=== PATIENT | male | born 1960 | race Caucasian/White ===

== ENCOUNTER 2021-01-29 15:58 | Inpatient (IN) ==
[2021-01-29] MEDS ORDERED: SODIUM CHLORIDE 0.9% 1000ML 1,000 ML IV ONE (16:37)
[2021-01-29] MEDS ORDERED: MoRPHine SULFATE 4 MG/ML 1 ML CARP\\VIAL IV STA (16:44)
--- NOTE | 2021-01-29 16:53 | Emergency Department Note ---
Impression & Plan Cellulitis and abscess of left lower extremity, Acute osteomyelitis of left ankle or foot ED Provider Note CHIEF COMPLAINT: Left ankle pain and swelling HISTORY OF PRESENTING ILLNESS: This is a 60-year-old male who presents to the emergency department by private vehicle with complaint of pain and swelling in the left ankle. The patient states that he believes he sprained the ankle about 2 months ago, he has been trying to manage the sprain since the injury with Andrez wraps and a walking boot, but he feels the pain and swelling continue to get worse. Over the past few days he has noticed increased redness and swelling around the whole foot and ankle. He notes that he is a diabetic and has some neuropathy in the foot, so he is not always certain of how bad the ankle is looking, but today when he looked at it he was very concerned. He has not had any fevers or chills. He denies any nausea, vomiting, or loss of appetite. He denies any chest pain, chest tightness, shortness of breath, palpitations, dizziness or syncope. He denies any pain in the knee or hip. He does note a history of a diabetic ulcer to this foot and notes that he had surgery several years ago to help fix this and also notes that he got an infection in the tendon. He does not remember much about the details, but notes that he was treated by the [facility]. He does not take insulin for his diabetes. REVIEW OF SYSTEMS: A complete 10 point review of systems was reviewed with the patient with pertinent positives and negatives as per history of present illness. All else were negative. PAST MEDICAL HISTORY: Hypertension, hyperlipidemia, type 2 diabetes, GERD SOCIAL HISTORY: Lives at home, he denies tobacco use ALLERGIES: No known allergies PHYSICAL EXAM: CONSTITUTIONAL: Pleasant and cooperative. Nontoxic-appearing and in no acute distress. Mildly dehydrated, but otherwise well appearing and well nourished. HEENT: Normocephalic, atraumatic. Pharynx normal. Tacky mucous membranes. NECK: Supple, full active range of motion without discomfort. RESPIRATORY: Clear to auscultation bilaterally with no wheezing, crackles, rhonchi or stridor. Equal expansion bilaterally. CARDIOVASCULAR: Regular rate and rhythm with no murmurs, rubs or gallops. Normal peripheral perfusion. No edema. GASTROINTESTINAL: Soft, nontender, nondistended. No palpable masses or HSM. Bowel sounds present in all quadrants. MUSCULOSKELETAL: The left foot and ankle are diffusely edematous, erythematous, and hot to the touch. Patient is very tender to palpation, especially along the medial aspect of the ankle and extending up the calf. There is a large area of fluctuance concerning for abscess. There is a small pressure ulcer noted on the ball of the foot, this does not appear to be actively infected or significantly open. 2+ DP and PT pulses, capillary refill. Sensation intact to light touch. There is pain with range of motion of the left ankle joint. No pain or swelling noted within the knee. INTEGUMENTARY: No other rash or other significant dermatologic conditions noted. NEUROLOGIC: Alert and oriented X 4 with normal affect. Normal strength and sensation in all 4 extremities. Normal speech. Normal gait observed. ED COURSE AND MEDICAL DECISION MAKING: CC: Patient presenting with complaint of left ankle pain and swelling DIFFERENTIAL DIAGNOSIS: Includes, but not limited to cellulitis, abscess, osteomyelitis, septic joint, diabetic wound, fracture, sprain/strain, among others. INTERPRETATION OF LABS: Leukocytosis, mild anemia, normal platelets, mild hyponatremia and hypokalemia, hyperglycemia, no other significant electrolyte abnormalities, BUN is slightly elevated with a normal creatinine, normal liver enzymes. ESR and CRP are significantly elevated. Coagulation factors within normal limits. Lactate within normal limits. Blood cultures pending. MEDICATION RECONCILIATION: I attest that I have personally reviewed the patient's current medication list. INITIAL VITAL SIGNS REVIEW: I reviewed the patient's initial vital signs and interpret them as follows: T: Afebrile; BP: Hypertensive; HR: Mildly tachycardic; RR: Within normal limits; Pulse Ox: Within normal limits on room air. MDM SUMMARY: Patient was evaluated at bedside, history and physical exam performed. Patient is alert and oriented, no acute distress, resting calmly in stretcher. Afebrile and nontoxic-appearing. He does appear to be mildly dehydrated clinically. The left foot and ankle are significantly swollen, erythematous and warm to the touch, concerning for infection. There is a significant area of fluctuance on the medial/posterior aspect of the ankle concerning for abscess. He is neurovascularly intact and there are no significant open wounds. There is a small area of pressure ulcer on the ball of the foot. Cardiac monitoring: An order was placed for continuous cardiac monitoring. The monitor shows a rate of 102 bpm with sinus tachycardia rhythm. Orders were placed for labs including inflammatory markers, lactic acid, and blood cultures x2, IV fluid bolus for hydration, IV Toradol for pain, CT imaging of the tib-fib, ankle, and foot to evaluate for infection. Patient discussed with Dr. James, who agrees with my assessment, plan, and disposition. Labs and imaging reviewed, labs notable for leukocytosis and elevated inflammatory markers. Mild hyponatremia is most likely secondary to hyperglycemia. Lactate was within normal limits. Blood cultures are pending. CT imaging is concerning for a very large multiloculated area along the medial posterior ankle concerning for an abscess as well as 2 areas that are concerning for osteomyelitis. I spoke on the phone with Dr. Pitts, orthopedic surgery, who recommended starting the patient on IV antibiotics and admitting the patient to the hospitalist team. He will evaluate the patient during his admission to deter mine any surgical needs. Orders were placed for 2 g IV cefepime and 2500 mg IV vancomycin for broad coverage of the patient's osteomyelitis and cellulitis. I spoke with Dr. Chapman, [facility], who agrees to evaluate the patient for the admission. Covid testing was ordered. Patient reassessed multiple times throughout ED stay, he has remained hemodynamically stable and afebrile, he reports that his pain has been adequately controlled with the Toradol. He remains neurovascularly intact. The patient was updated on all results and plan for admission, he was agreeable to this plan. The patient was stable at the time of admission. The chart was completed utilizing [employer] Speech voice recognition software. Grammatical errors, random word insertions, pronoun errors, and incomplete sentences are an occasional consequence of this system due to software limitations, ambient noise, and hardware issues. Any formal questions or concerns about the content, text, or information contained within the body of this dictation should be directly addressed to the nurse practitioner for clarification. Past Med/Surg History Social History Smoking Status: Never smoker Preferred Language: Serbian Feels Safe at Home: Yes Allergies Allergies Allergy/AdvReac Type Severity Reaction Status Date / Time [id number] Allergy Unknown Uncoded 09/26/02 14:35 N Allergy Unknown Uncoded 09/26/02 14:35 NONE Allergy Unknown Uncoded 09/26/02 14:35 Home Meds Home Medications Medication Instructions Recorded Confirmed alogliptin 25 mg PO DAILY 01/29/21 01/29/21 aspirin [Aspir-Low] 81 mg PO DAILY 01/29/21 01/29/21 atorvastatin 20 mg PO DAILY 01/29/21 01/29/21 cephalexin 500 mg PO QID 01/29/21 01/29/21 empagliflozin [Jardiance] 12.5 mg PO DAILY 01/29/21 01/29/21 famotidine [Pepcid] 20 mg PO BID 01/29/21 01/29/21 hydrochlorothiazide 25 mg PO DAILY 01/29/21 01/29/21 lisinopril 20 mg PO DAILY 01/29/21 01/29/21 loratadine 10 mg PO DAILY PRN 01/29/21 01/29/21 metformin 1,000 mg PO BID 01/29/21 01/29/21 metoprolol tartrate 50 mg PO BID 01/29/21 01/29/21 multivitamin 1 tab PO DAILY 01/29/21 01/29/21 Results & Data (ED) Vital Signs Vital Signs - 24 hr 01/29/21 16:00 01/29/21 17:29 Temperature 36.7 C Temperature Source Temporal Artery Scan Pulse Rate 109 H Pulse Rate [Finger] 92 H Pulse Rhythm [Finger] Regular Respiratory Rate 18 18 Respiratory Effort / Characteristics Non-Labored Spontaneous Respiratory Depth Normal Respiratory Pattern Regular Blood Pressure 165/82 H Blood Pressure [Right Arm] 167/95 H Blood Pressure Mean 109 Blood Pressure Mean [Right Arm] 119 Blood Pressure Position [Right Arm] Lying Pulse Oximetry 96 99 Oxygen Delivery Method Room Air Room Air Sepsis Recent Fever Within 48 Hours No Sepsis New/Unexplained Change in Mental Status No Sepsis Action Taken by Nursing No Action Required Laboratory Data Result diagrams: 01/29/21 16:55 01/29/21 16:55 Lab Results 01/29/21 01/29/21 01/29/21 Range/Units 16:55 16:55 16:55 WBC 11.12 H (4.8-10.8) K/uL RBC 4.05 L (4.7-6.1) M/uL Hgb 11.6 L (14.0-18.0) g/dL Hct 34.0 L (42-52) % MCV 84.0 (80-100) fL MCH 28.6 (25-34) pg MCHC 34.1 (32-36) g/dL RDW Std Deviation 39.2 (36.4-46.3) fL RDW Coeff of Kevin 12.8 (11.5-14.5) % Plt Count 242 (130-400) K/uL MPV 8.4 (7.4-10.4) fL Immature Gran % (Auto) 0.2 % Neut % (Auto) 67.8 % Lymph % (Auto) 15.5 % [place] % (Auto) 15.8 % Eos % (Auto) 0.6 % Baso % (Auto) 0.1 % Neut # (Auto) 7.54 H (1.4-6.5) K/uL Lymph # (Auto) 1.72 (1.2-3.4) K/uL [place] # (Auto) 1.76 H (0.11-0.59) K/uL Eos # (Auto) 0.07 (0-0.5) K/uL Baso # (Auto) 0.01 (0-0.2) K/uL Immature Gran # (Auto) 0.02 (0.00-0.02) K/uL ESR 61 H (0-20) mm/hr PT (9.0-12.0) Seconds INR (0.9-1.1) APTT (21.0-31.0) Seconds PTT Ratio Sodium 131 L (136-145) mmol/L Potassium 3.4 L (3.5-5.1) mmol/L Chloride 98 (98-107) mmol/L Carbon Dioxide 25 (21-32) mmol/L Anion Gap 7.0 (3-11) BUN 22 H (7-18) mg/dl Creatinine 1.04 (0.6-1.4) mg/dl Est Cr Clr Drug Dosing Not Reportable Est GFR ( Amer) 90.0 ml/min Est GFR (Non-Af Amer) 77.7 ml/min BUN/Creatinine Ratio 21.3 H (10-20) Glucose 208 H (70-99) mg/dl Lactate (0.4-2.0) mmol/L Calcium 8.8 (8.5-10.1) mg/dl Total Bilirubin 0.3 (0.2-1) mg/dl AST 12 L (15-37) U/L ALT 24 (12-78) U/L Alkaline Phosphatase 74 (45-117) U/L C-Reactive Protein 18.50 H (0-0.29) mg/dl Total Protein 7.0 (6.4-8.2) gm/dl Albumin 2.8 L (3.4-5.0) gm/dl Globulin 4.2 H (2.5-4.0) gm/dl Albumin/Globulin Ratio 0.7 L (0.9-2) COVID-19 Eval Order SARS-CoV-2 (PCR) (Negative) 01/29/21 01/29/21 01/29/21 Range/Units 16:55 16:55 19:45 WBC (4.8-10.8) K/uL RBC (4.7-6.1) M/uL Hgb (14.0-18.0) g/dL Hct (42-52) % MCV (80-100) fL MCH (25-34) pg MCHC (32-36) g/dL RDW Std Deviation (36.4-46.3) fL RDW Coeff of Kevin (11.5-14.5) % Plt Count (130-400) K/uL MPV (7.4-10.4) fL Immature Gran % (Auto) % Neut % (Auto) % Lymph % (Auto) % [place] % (Auto) % Eos % (Auto) % Baso % (Auto) % Neut # (Auto) (1.4-6.5) K/uL Lymph # (Auto) (1.2-3.4) K/uL [place] # (Auto) (0.11-0.59) K/uL Eos # (Auto) (0-0.5) K/uL Baso # (Auto) (0-0.2) K/uL Immature Gran # (Auto) (0.00-0.02) K/uL ESR (0-20) mm/hr PT 11.0 (9.0-12.0) Seconds INR 1.1 (0.9-1.1) APTT 26.5 (21.0-31.0) Seconds PTT Ratio 1.0 Sodium (136-145) mmol/L Potassium (3.5-5.1) mmol/L Chloride (98-107) mmol/L Carbon Dioxide (21-32) mmol/L Anion Gap (3-11) BUN (7-18) mg/dl Creatinine (0.6-1.4) mg/dl Est Cr Clr Drug Dosing Est GFR ( Amer) ml/min Est GFR (Non-Af Amer) ml/min BUN/Creatinine Ratio (10-20) Glucose (70-99) mg/dl Lactate 1.1 (0.4-2.0) mmol/L Calcium (8.5-10.1) mg/dl Total Bilirubin (0.2-1) mg/dl AST (15-37) U/L ALT (12-78) U/L Alkaline Phosphatase (45-117) U/L C-Reactive Protein (0-0.29) mg/dl Total Protein (6.4-8.2) gm/dl Albumin (3.4-5.0) gm/dl Globulin (2.5-4.0) gm/dl Albumin/Globulin Ratio (0.9-2) COVID-19 Eval Order Covid19 at [facility] SARS-CoV-2 (PCR) (Negative) 01/29/21 Range/Units 19:45 WBC (4.8-10.8) K/uL RBC (4.7-6.1) M/uL Hgb (14.0-18.0) g/dL Hct (42-52) % MCV (80-100) fL MCH (25-34) pg MCHC (32-36) g/dL RDW Std Deviation (36.4-46.3) fL RDW Coeff of Kevin (11.5-14.5) % Plt Count (130-400) K/uL MPV (7.4-10.4) fL Immature Gran % (Auto) % Neut % (Auto) % Lymph % (Auto) % [place] % (Auto) % Eos % (Auto) % Baso % (Auto) % Neut # (Auto) (1.4-6.5) K/uL Lymph # (Auto) (1.2-3.4) K/uL [place] # (Auto) (0.11-0.59) K/uL Eos # (Auto) (0-0.5) K/uL Baso # (Auto) (0-0.2) K/uL Immature Gran # (Auto) (0.00-0.02) K/uL ESR (0-20) mm/hr PT (9.0-12.0) Seconds INR (0.9-1.1) APTT (21.0-31.0) Seconds PTT Ratio Sodium (136-145) mmol/L Potassium (3.5-5.1) mmol/L Chloride (98-107) mmol/L Carbon Dioxide (21-32) mmol/L Anion Gap (3-11) BUN (7-18) mg/dl Creatinine (0.6-1.4) mg/dl Est Cr Clr Drug Dosing Est GFR ( Amer) ml/min Est GFR (Non-Af Amer) ml/min BUN/Creatinine Ratio (10-20) Glucose (70-99) mg/dl Lactate (0.4-2.0) mmol/L Calcium (8.5-10.1) mg/dl Total Bilirubin (0.2-1) mg/dl AST (15-37) U/L ALT (12-78) U/L Alkaline Phosphatase (45-117) U/L C-Reactive Protein (0-0.29) mg/dl Total Protein (6.4-8.2) gm/dl Albumin (3.4-5.0) gm/dl Globulin (2.5-4.0) gm/dl Albumin/Globulin Ratio (0.9-2) COVID-19 Eval Order SARS-CoV-2 (PCR) NEGATIVE (Negative) Administered Medications Vancomycin HCl 2,500 mg/ (Sodium Chloride) 550 mls @ 200 mls/hr IV NOW ONE Stop: 01/29/21 21:38 Last Admin: 01/29/21 19:27 Dose: 200 mls/hr Documented by: [id number] Miscellaneous Information (Vancomycin Consult Active) 1 ea N/A UD PRN PRN Reason: Consult Stop: 02/28/21 18:53 Last Admin: 01/29/21 19:28 Dose: 1 ea Documented by: [id number] Discontinued Medications Sodium Chloride (Nss 1000ml) 1,000 mls @ 999 mls/hr IV .Q1H1M ONE Stop: 01/29/21 17:37 Last Infusion: 01/29/21 18:01 Dose: 0 mls/hr Documented by: [id number] Admin: 01/29/21 16:55 Dose: 999 mls/hr Documented by: [id number] Cefepime HCl (Maxipime) 2,000 mg in 20 mls @ 5 mls/min IV NOW STA; Protocol Stop: 01/29/21 18:57 Last Admin: 01/29/21 19:26 Dose: 5 mls/min Documented by: [id number] Ioversol (Optiray 320 100ml) 94 ml IV ONCE ONE Stop: 01/29/21 17:50 Last Admin: 01/29/21 17:49 Dose: 94 ml Documented by: [id number] Ketorolac Tromethamine (Ketorolac Tromethamine 15 Mg/Ml Vial) 10 mg IV NOW ONE Stop: 01/29/21 17:10 Last Admin: 01/29/21 17:21 Dose: 10 mg Documented by: [id number] Morphine Sulfate (Morphine Sulfate 4 Mg/Ml 1 Ml Carp\Vial) 4 mg IV NOW STA Stop: 01/29/21 16:45 Last Admin: 01/29/21 17:19 Dose: Not Given Documented by: [id number] Imaging Data Radiologist's Impression: Ankle CT 01/29/21 16:37 CT tib/fib LT w con, CT foot LT w con, CT ankle LT w con HISTORY: Left lower extremity cellulitis TECHNIQUE: Multiaxial CT images of the left tibia/fibula, left ankle, left foot were performed following the intravenous administration of 94 cc of Optiray 320. COMPARISON STUDY: None. FINDINGS: There is diffuse skin thickening, subcutaneous edema, and enhancing subcutaneous fat stranding within the mid to distal left lower leg, left ankle, and majority of the left foot consistent with a cellulitis. There is a 3 mm focal skin ulceration at the plantar surface of the first MTP joint. Deep to the skin ulceration there is focal cortical destruction involving greater than 50% of the lateral sesamoid bone at the head of the first metatarsal. Therefore, this is consistent with an osteomyelitis. Subcutaneous infiltration within the sinus tarsi with possible small erosion at the anterior process of the calcaneus best seen on sagittal image 44. There are small plantar and posterior calcaneal spurs. No fractures identified within the right lower leg, right ankle, or right foot. There is a 1.2 cm osteochondral defect at the medial talar dome with a few small unstable bony fragments. There is a multiloculated peripheral enhancing low density abnormality primarily located within the pre-Achilles fat pad which involves the distal aspect of the soleus muscles. This abuts the distal shaft of the fibula. However, no cortical destruction. This measures approximately 16.2 x 6.7 x 3.5 cm and is consistent with a soft tissue abscess. This extends from the mid right lower leg to the level of the posterior talus. IMPRESSION: 1. A large multiloculated peripheral enhancing low density abnormality within the mid to distal lower leg posterior compartment which extends to the posterior ankle. This is primarily located within the pre-Achilles fat pad. This measures 16.2 x 6.7 x 3.5 cm is consistent with an abscess. This appears to also involv e/invade into the distal aspect of the soleus muscles. 2. A 3 mm skin ulceration at the plantar surface of the first MTP joint with underlying bony destruction of the lateral sesamoid bone. This consistent with an osteomyelitis. 3. Diffuse cellulitis. 4. Mild infiltration within the sinus tarsi with possible small erosion at the anterior calcaneus. This small erosion is age indeterminate but could represent an additional site of osteoarthritis. ACT 112: Negative or not required by law. Electronically signed by: Cezar Bone M.D. 01/29/2021 6:[address] 01/29/21 16:43 CT tib/fib LT w con, CT foot LT w con, CT ankle LT w con HISTORY: Left lower extremity cellulitis TECHNIQUE: Multiaxial CT images of the left tibia/fibula, left ankle, left foot were performed following the intravenous administration of 94 cc of Optiray 320. COMPARISON STUDY: None. FINDINGS: There is diffuse skin thickening, subcutaneous edema, and enhancing subcutaneous fat stranding within the mid to distal left lower leg, left ankle, and majority of the left foot consistent with a cellulitis. There is a 3 mm focal skin ulceration at the plantar surface of the first MTP joint. Deep to the skin ulceration there is focal cortical destruction involving greater than 50% of the lateral sesamoid bone at the head of the first metatarsal. Therefore, this is consistent with an osteomyelitis. Subcutaneous infiltration within the sinus tarsi with possible small erosion at the anterior process of the calcaneus best seen on sagittal image 44. There are small plantar and posterior calcaneal spurs. No fractures identified within the right lower leg, right ankle, or right foot. There is a 1.2 cm osteochondral defect at the medial talar dome with a few small unstable bony fragments. There is a multiloculated peripheral enhancing low density abnormality primarily located within the pre-Achilles fat pad which involves the distal aspect of the soleus muscles. This abuts the distal shaft of the fibula. However, no cortical destruction. This measures approximately 16.2 x 6.7 x 3.5 cm and is consistent with a soft tissue abscess. This extends from the mid right lower leg to the level of the posterior talus. IMPRESSION: 1. A large multiloculated peripheral enhancing low density abnormality within the mid to distal lower leg posterior compartment which extends to the posterior ankle. This is primarily located within the pre-Achilles fat pad. This measures 16.2 x 6.7 x 3.5 cm is consistent with an abscess. This appears to also involve/invade into the distal aspect of the soleus muscles. 2. A 3 mm skin ulceration at the plantar surface of the first MTP joint with underlying bony destruction of the lateral sesamoid bone. This consistent with an osteomyelitis. 3. Diffuse cellulitis. 4. Mild infiltration within the sinus tarsi with possible small erosion at the anterior calcaneus. This small erosion is age indeterminate but could represent an additional site of osteoarthritis. ACT 112: Negative or not required by law. Electronically signed by: Cezar Bone M.D. 01/29/2021 6:[address] 01/29/21 17:45 CT tib/fib LT w con, CT foot LT w con, CT ankle LT w con HISTORY: Left lower extremity cellulitis TECHNIQUE: Multiaxial CT images of the left tibia/fibula, left ankle, left foot were performed following the intravenous administration of 94 cc of Optiray 320. COMPARISON STUDY: None. FINDINGS: There is diffuse skin thickening, subcutaneous edema, and enhancing subcutaneous fat stranding within the mid to distal left lower leg, left ankle, and majority of the left foot consistent with a cellulitis. There is a 3 mm focal skin ulceration at the plantar surface of the first MTP joint. Deep to the skin ulceration there is focal cortical destruction involving greater than 50% of the lateral sesamoid bone at the head of the first metatarsal. Therefore, this is consistent with an osteomyelitis. Subcutaneous infiltration within the sinus tarsi with possible small erosion at the anterior process of the calcaneus best seen on sagittal image 44. There are small plantar and posterior calcaneal spurs. No fractures identified within the right lower leg, right ankle, or right foot. There is a 1.2 cm osteochondral defect at the medial talar dome with a few small unstable bony fragments. There is a multiloculated peripheral enhancing low density abnormality primarily located within the pre-Achilles fat pad which involves the distal aspect of the soleus muscles. This abuts the distal shaft of the fibula. However, no cortical destruction. This measures approximately 16.2 x 6.7 x 3.5 cm and is consistent with a soft tissue abscess. This extends from the mid right lower leg to the level of the posterior talus. IMPRESSION: 1. A large multiloculated peripheral enhancing low density abnormality within the mid to distal lower leg posterior compartment which extends to the posterior ankle. This is primarily located within the pre-Achilles fat pad. This measures 16.2 x 6.7 x 3.5 cm is consistent with an abscess. This appears to also involve/invade into the distal aspect of the soleus muscles. 2. A 3 mm skin ulceration at the plantar surface of the first MTP joint with underlying bony destruction of the lateral sesamoid bone. This consistent with an osteomyelitis. 3. Diffuse cellulitis. 4. Mild infiltration within the sinus tarsi with possible small erosion at the anterior calcaneus. This small erosion is age indeterminate but could represent an additional site of osteoarthritis. ACT 112: Negative or not required by law. Electronically signed by: Cezar Bone M.D. 01/29/2021 6:17 PM Discharge Plan Visit Data Chief Complaint: Ankle Pain Stated Complaint: LEFT ANKLE SWOLLEN, LEG PAIN ED Provider: Lilian James ED Midlevel Provider: Odessa Maradiaga Discharge Problem: Cellulitis and abscess of left lower extremity, Acute osteomyelitis of left ankle or foot Patient Disposition: Admitted As Inpatient Condition: Good Forms Stand Alone Forms: [facility], Virtual Emergency Department, Important Visit Information Prescriptions Prescriptions: No Action multivitamin Tablet 1 tab PO DAILY RF: 0 atorvastatin 40 mg Tablet 20 mg PO DAILY RF: 0 lisinopril 20 mg Tablet 20 mg PO DAILY RF: 0 aspirin [Aspir-Low] 81 mg Tablet,Delayed Release (Dr/Ec) 81 mg PO DAILY RF: 0 famotidine [Pepcid] 20 mg Tablet 20 mg PO BID RF: 0 cephalexin 500 mg capsule 500 mg PO QID RF: 0 metformin 1,000 mg Tablet 1,000 mg PO BID RF: 0 metoprolol tartrate 50 mg Tablet 50 mg PO BID RF: 0 hydrochlorothiazide 25 mg Tablet 25 mg PO DAILY RF: 0 loratadine 10 mg Tablet 10 mg PO DAILY PRN (Reason: ALLERGIES) RF: 0 alogliptin 25 mg Tablet 25 mg PO DAILY RF: 0 Jardiance 25 mg Tablet 12.5 mg PO DAILY RF: 0 Referrals Referrals: Westley Bardales MD [Primary Care Provider] -
[2021-01-29 17:05] LABS: Basophils # (auto) 0.01 K/uL (0-0.2); Basophils % (auto) 0.1 %; Eosinophils # (auto) 0.07 K/uL (0-0.5); Eosinophils % (auto) 0.6 %; Hemoglobin 11.6 g/dL (14.0-18.0); Immature Granulocytes # (auto) 0.02 K/uL (0.00-0.02); Immature Granulocytes % (auto) 0.2 %; Lymphocytes # (auto) 1.72 K/uL (1.2-3.4); Lymphocytes % (auto) 15.5 %; Mean Corpuscular Hemoglobin 28.6 pg (25-34); Mean Corpuscular Hgb Conc 34.1 g/dL (32-36); Mean Platelet Volume 8.4 fL (7.4-10.4); Monocytes # (auto) 1.76 K/uL (0.11-0.59); Monocytes % (auto) 15.8 %; Neutrophils # (auto) 7.54 K/uL (1.4-6.5); Neutrophils % (auto) 67.8 %; Platelet Count 242 K/uL (130-400); RDW Coefficient of Variation 12.8 % (11.5-14.5); RDW Standard Deviation 39.2 fL (36.4-46.3); Red Blood Count 4.05 M/uL (4.7-6.1); White Blood Count 11.12 K/uL (4.8-10.8)
[2021-01-29] MEDS ORDERED: KETOROLAC TROMETHAMINE 15 MG/ML VIAL IV ONE (17:09)
[2021-01-29 17:16] LABS: INR 1.1 (0.9-1.1); Partial Thromboplastin Time 26.5 Seconds (21.0-31.0)
[2021-01-29 17:24] LABS: Alanine Aminotransferase 24 U/L (12-78); Albumin Level 2.8 gm/dl (3.4-5.0); Aspartate Aminotransferase 12 U/L (15-37); BUN Creatinine Ratio 21.3 (10-20); Blood Urea Nitrogen 22 mg/dl (7-18); Calcium 8.8 mg/dl (8.5-10.1); Carbon Dioxide 25 mmol/L (21-32); Chloride 98 mmol/L (98-107); Est GFR (Non-African American) 77.7 ml/min; Glucose 208 mg/dl (70-99); Potassium 3.4 mmol/L (3.5-5.1); Sodium 131 mmol/L (136-145)
[2021-01-29 17:27] LABS: Albumin Globulin Ratio 0.7 (0.9-2); Alkaline Phosphatase 74 U/L (45-117); Bilirubin,Total 0.3 mg/dl (0.2-1); Globulin 4.2 gm/dl (2.5-4.0)
[2021-01-29] MEDS ORDERED: OPTIRAY 320 100ml IV ONE (17:49)
--- NOTE | 2021-01-29 18:19 | CT Scan Report ---
CT tib/fib LT w con, CT foot LT w con, CT ankle LT w con HISTORY: Left lower extremity cellulitis TECHNIQUE: Multiaxial CT images of the left tibia/fibula, left ankle, left foot were performed follow ing the intravenous administration of 94 cc of Optiray 320. COMPARISON STUDY: None. FINDINGS: There is diffuse skin thickening, subcutaneous edema, and enhancing subcutaneous fat strand ing within the mid to distal left lower leg, left ankle, and majority of the left foot consistent wit h a cellulitis. There is a 3 mm focal skin ulceration at the plantar surface of the first MTP joint. Deep to the skin ulceration there is focal cortical destruction involving greater than 50% of the lat eral sesamoid bone at the head of the first metatarsal. Therefore, this is consistent with an osteomy elitis. Subcutaneous infiltration within the sinus tarsi with possible small erosion at the anterior process of the calcaneus best seen on sagittal image 44. There are small plantar and posterior calcan eal spurs. No fractures identified within the right lower leg, right ankle, or right foot. There is a 1.2 cm osteochondral defect at the medial talar dome with a few small unstable bony fragments. There is a multiloculated peripheral enhancing low density abnormality primarily located within the pre-Ac hilles fat pad which involves the distal aspect of the soleus muscles. This abuts the distal shaft of the fibula. However, no cortical destruction. This measures approximately 16.2 x 6.7 x 3.5 cm and is consistent with a soft tissue abscess. This extends from the mid right lower leg to the level of the posterior talus. IMPRESSION: 1. A large multiloculated peripheral enhancing low density abnormality within the mid to distal lower leg posterior compartment which extends to the posterior ankle. This is primarily located within the pre-Achilles fat pad. This measures 16.2 x 6.7 x 3.5 cm is consistent with an abscess. This appears to also involve/invade into the distal aspect of the soleus muscles. 2. A 3 mm skin ulceration at the plantar surface of the first MTP joint with underlying bony destruct ion of the lateral sesamoid bone. This consistent with an osteomyelitis. 3. Diffuse cellulitis. 4. Mild infiltration within the sinus tarsi with possible small erosion at the anterior calcaneus. Th is small erosion is age indeterminate but could represent an additional site of osteoarthritis. ACT 112: Negative or not required by law. Electronically signed by: Cezar Bone M.D. 01/29/2021 6:17 PM
[2021-01-29] MEDS ORDERED: VANCOMYCIN HCL 2,500 MG in SODIUM CHLORIDE 0.9% 500 ML IV ONE (18:54)
[2021-01-29] MEDS ORDERED: CEFEPIME 2,000 MG/20 ML VIAL IV STA (18:54)
[2021-01-29] MEDS ORDERED: VANCOMYCIN CONSULT ACTIVE PRN ×2 (18:54→23:00)
--- NOTE | 2021-01-29 20:07 | History & Physical Report ---
Date of Service January 29, 2021 Assessment & Plan (1) Cellulitis and abscess of left lower extremity: Patient is a 60 year old male with PMHx DM2, Diabetic ulcer L foot, HTN, GERD, that presents after 1 month history of worsening swelling and tenderness of his LLE found to have a large multiloculated abscess within the mid to distal L lower leg in addition to suspected osteomyelitis of the lateral sesamoid bone. L leg Abscess and L foot osteomyelitis -Roughly 16.2 x 6.7 x 3.5 cm abscess extending from the mid to distal lower leg posterior compartment to the posterior ankle. -CT criteria for osteomyelitis of the lateral sesamoid bone -Will order for MRI of the LLE, ankle, and foot to confirm osteomyelitis -Will also order for US arterial of LLE to ensure proper blood flow for future healing -Ortho consulted -Blood cultures pending -Started initially on Vancomycin and Cefepime in ED -Will continue Vancomycin and add Zosyn in place of Cefepime -NPO until evaluated by Ortho -Will likely require PICC line in future for treatment of osteomyelitis -Records requested from the [facility] for patient's prior procedures DM2 -SSI and Basal bolus -HgbA1c in AM -Hold home meds GERD -Continue home Pepcid HTN -Continue home Lisinopril, HCTZ, Metoprolol -If renal function begins to worsen and pressures stay stable, can consider holding Lisinopril and HCTZ while on Vanc and Zosyn HLD -Hold home ASA at this time -Continue home Atorvastatin Dispo: Med/Surg for IV antibiotics pending evaluation from Ortho FEN: NPO, LR 125ml/hr x2L DVT: Hold chemoprophylaxis at this time Code: Full (2) Acute osteomyelitis of left ankle or foot: History of Present Illness Chief Complaint: L Leg Swelling and Pain Primary Care Provider: Westley Bardales MD Patient is a 60 year old male with PMHx DM2, Diabetic ulcer L foot, HTN, GERD, that presents after 1 month history of worsening swelling and tenderness of his LLE found to have a large multiloculated abscess within the mid to distal L lower leg in addition to suspected osteomyelitis of the lateral sesamoid bone. Patient notes that he had undergone surgery 1 month ago (cannot recall the specifics) in regards to a diabetic foot ulcer on the ball of his L foot at the [facility] with Dr. Mejia and since then has not noticed complete healing. He states that shortly after the procedure, within the same week, he was out in [place] when he sprained his L ankle of the same foot. Since then patient has noticed worsening swelling, redness, and pain of his LLE. He states that he has very minimal feeling of his feet at baseline due to his diabetes. He notes that he has also been taking Keflex without much improvement. He notes that presents today due to worsening pain in his L leg. He notes the pain is a 0/10 currently, but can get up to a 6-10/10 that is pressure. He denies any fever, chills, SOB, chest pain, abdominal pain, headache, NVD, constipation, dysuria, hematuria otherwise. Med Hx: DM2, HTN, GERD, Diabetic foot ulcer Surg Hx: L foot debridement Soc Hx: No tobacco, alcohol, illicit drug use. Allergies Allergy/AdvReac Type Severity Reaction Status Date / Time No Known Allergies Allergy Verified 01/29/21 23:20 Home Medications Medication Instructions Recorded Confirmed Type alogliptin 25 mg PO DAILY 01/29/21 01/29/21 History aspirin [Aspir-Low] 81 mg PO DAILY 01/29/21 01/29/21 History atorvastatin 20 mg PO DAILY 01/29/21 01/29/21 History cephalexin 500 mg PO QID 01/29/21 01/29/21 History empagliflozin [Jardiance] 12.5 mg PO DAILY 01/29/21 01/29/21 History famotidine [Pepcid] 20 mg PO BID 01/29/21 01/29/21 History hydrochlorothiazide 25 mg PO DAILY 01/29/21 01/29/21 History lisinopril 20 mg PO DAILY 01/29/21 01/29/21 History loratadine 10 mg PO DAILY PRN 01/29/21 01/29/21 History metformin 1,000 mg PO BID 01/29/21 01/29/21 History metoprolol tartrate 50 mg PO BID 01/29/21 01/29/21 History multivitamin 1 tab PO DAILY 01/29/21 01/29/21 History Past Med/Surg History Medical History (Updated 01/30/21 @ 13:37 by Elliott Green MD) Anemia DM type 2 (diabetes mellitus, type 2) GERD (gastroesophageal reflux disease) Hyperlipemia Hypertension Obesity Surgical History (Updated 01/30/21 @ 13:31 by Elliott Green MD) History of foot operation Social History Smoking Status: Never smoker Hx Alcohol Use: No Hx Substance Use: No Preferred Language: Marshallese Communication Ability: Effective Classroom Teacher Required: No Beliefs That Will Affect Care: None Current Living Situation: Alone Feels Safe at Home: Yes Safety Concerns: Feels Safe At This Time Assistive Devices: Glasses Review of Systems Review of Systems: All systems reviewed & are unremarkable except as noted in Subjective Physical Exam Constitutional: WD/WN, vitals as above Eyes: PERRL, conjunctivae normal, anicteric sclerae ENMT: external ear and nose normal, oropharynx normal Neck: trachea midline, no thyromegaly Respiratory: normal respiratory effort, lungs clear to auscultation Cardiovascular: Rate/Rhythm: regular rate and regular rhythm Heart Sounds: no murmur Vessels: posterior tibial pulses present and dorsalis pedis pulses present Extremities: + calf tenderness (L leg ) and + edema (L>R +1 ) Gastrointestinal (Abdomen): normal bowel sounds, soft, nontender, no hepatosplenomegaly Musculoskeletal: LE Strength 5/5 b/l Minimal sensation of the feet b/l Slight TTP of the posterior distal L leg with fluctuance and erythema spanning distal from the gastrocnemius muscle body to the achilles tendon Non-bleeding and scarred ulceration of the distal plantar L foot at the 1st MTP Neurologic: + abnormal touch/pain/proprioception (limited sensation of feet b/l ) Psychiatric: A+Ox3, euthymic affect Results & Data Results & Data ([facility] [place]) Vital Signs (Past 12 Hours) Vital Signs Temp Pulse Pulse Resp BP BP Pulse Ox 01/29/21 17:29 92 H 18 167/95 H 99 01/29/21 16:00 36.7 C 109 H 18 165/82 H 96 Supervising Physician Co-Signing Physician Notes Attending addendum: I have physically seen this patient, have supervised the medical residents activities, and agree with the H&P unless as otherwise noted. Assessment and Plan: Cellulitis/abscess/osteomyelitis of left lower extremity- Order arterial ultrasound to assess for PAD Follow blood cultures and sensitivities Admit on vancomycin IV and Zosyn IV PICC line placement Diabetes mellitus- Check hemoglobin A1c Placed on Accu-Cheks before meals and at bedtime with NovoLog coverage per scale Hold medications from home GERD- Continue famotidine Hypertension- Continue lisinopril, HCTZ and metoprolol with hold parameters Remaining orders and notations as noted Resident Activity Tracking Resident Involvement: Resident Care Provided Care Provided: Adult Hospital Medicine
[2021-01-29] MEDS ORDERED: GLUCOSE 10 TABS/TUBE PO PRN (23:00)
[2021-01-29] MEDS ORDERED: DEXTROSE 50% 50 ML SYRINGE IV PRN (23:00)
[2021-01-29] MEDS ORDERED: ONDANSETRON INJ 2 MG/ML 2 ML VIAL IV PRN (23:00)
[2021-01-29] MEDS ORDERED: CARBOHYDRATES FOR HYPOGLYCEMIA PO PRN (23:00)
[2021-01-29] MEDS ORDERED: GLUCOSE 40% GEL 15 GM TUBE PO PRN (23:00)
[2021-01-29] MEDS ORDERED: GLUCAGON FOR INJ 1 MG VIAL SQ PRN (23:00)
[2021-01-29] MEDS ORDERED: PIPERACILL/TAZOBAC CONSULT ACTIVE PRN (23:00)
[2021-01-30] MEDS: INSULIN ASPART 100 UNITS/ML 3 ML PEN SC SCH ×4 (00:15→18:46)
[2021-01-30] MEDS: LACTATED RINGER'S 1,000 ML IV SCH ×2 (01:33→12:24)
[2021-01-30] MEDS ORDERED: PIPERACILLIN/TAZOBACTAM 3.375 GM in DEXTROSE 5% 100 ML IV SCH (02:00)
[2021-01-30] MEDS: VANCOMYCIN HCL 1,500 MG in SODIUM CHLORIDE 0.9% 500 ML IV SCH ×2 (05:21→17:10)
[2021-01-30] MEDS: ACETAMINOPHEN 325 MG TAB PO PRN (08:49)
[2021-01-30 08:53] LABS: Basophils # (auto) 0.01 K/uL (0-0.2); Basophils % (auto) 0.1 %; Eosinophils # (auto) 0.04 K/uL (0-0.5); Eosinophils % (auto) 0.4 %; Hematocrit (blood only) 31.4 % (42-52); Hemoglobin 10.5 g/dL (14.0-18.0); Immature Granulocytes # (auto) 0.01 K/uL (0.00-0.02); Immature Granulocytes % (auto) 0.1 %; Lymphocytes % (auto) 18.8 %; Mean Corpuscular Hgb Conc 33.4 g/dL (32-36); Mean Corpuscular Volume 83.7 fL (80-100); Mean Platelet Volume 8.2 fL (7.4-10.4); Monocytes # (auto) 1.23 K/uL (0.11-0.59); Monocytes % (auto) 13.6 %; Neutrophils # (auto) 6.04 K/uL (1.4-6.5); Platelet Count 229 K/uL (130-400); RDW Standard Deviation 39.5 fL (36.4-46.3); Red Blood Count 3.75 M/uL (4.7-6.1); White Blood Count 9.03 K/uL (4.8-10.8)
[2021-01-30] MEDS: ATORVASTATIN 20 MG TAB PO SCH (08:58)
[2021-01-30] MEDS: FAMOTIDINE 20 MG TAB PO SCH ×2 (08:58→19:57)
[2021-01-30] MEDS: INSULIN GLARGINE SOLOSTAR 100 UNITS/ML 3 ML PEN SC SCH ×3 (08:58→21:18)
[2021-01-30] MEDS: lisinopril 20 MG TAB PO SCH (08:59)
[2021-01-30] MEDS: hydroCHLOROthiazide 25 MG TAB PO SCH (08:59)
[2021-01-30] MEDS: METOPROLOL TARTRATE 50 MG TAB PO SCH ×2 (08:59→19:57)
[2021-01-30 09:27] LABS: BUN Creatinine Ratio 18.2 (10-20); Calcium 8.2 mg/dl (8.5-10.1); Creatinine Clr Calc Pharmacy 122.2 ml/min; Est GFR (African American) 113.1 ml/min; Est GFR (Non-African American) 97.6 ml/min; Potassium 3.5 mmol/L (3.5-5.1)
--- NOTE | 2021-01-30 09:27 | Hospitalist Progress Note ---
Date of Service January 30, 2021 Assessment & Plan (1) Cellulitis and abscess of left lower extremity: Patient is a 60 year old male with PMHx DM2, Diabetic ulcer L foot, HTN, GERD, that presents after 1 month history of worsening swelling and tenderness of his LLE found to have a large multiloculated abscess within the mid to distal L lower leg in addition to suspected osteomyelitis of the lateral sesamoid bone. L leg Abscess and L foot osteomyelitis IMPRESSION: 1. A large multiloculated peripheral enhancing low density abnormality within the mid to distal lower leg posterior compartment which extends to the posterior ankle. This is primarily located within the pre-Achilles fat pad. This measures 16.2 x 6.7 x 3.5 cm is consistent with an abscess. This appears to also involve/invade into the distal aspect of the soleus muscles. 2. A 3 mm skin ulceration at the plantar surface of the first MTP joint with underlying bony destruction of the lateral sesamoid bone. This consistent with an osteomyelitis. 3. Diffuse cellulitis. 4. Mild infiltration within the sinus tarsi with possible small erosion at the anterior calcaneus. This small erosion is age indeterminate but could represent an additional site of osteoarthritis. -MRI of the foot does not suggest osteomyelitis -Arterial duplex of the lower leg show circulation appears to be intact -Ortho consulted plans for surgical drainage on 01/31/2020 -Blood cultures pending -Started initially on Vancomycin and Cefepime in ED -Will continue Vancomycin and add Zosyn in place of Cefepime -NPO until evaluated by Ortho Patient has no cardiovascular risk complaints prior to surgery examination is without heart failure no suggestion of unstable angina EKG shows sinus rhythm with a left anterior fascicular block -[facility] DM2 -SSI and Basal bolus -HgbA1c in AM -Hold home meds GERD -Continue home Pepcid HTN -Continue home Lisinopril, HCTZ, Metoprolol -If renal function begins to worsen and pressures stay stable, can consider holding Lisinopril and HCTZ while on Vanc and Zosyn HLD -Hold home ASA at this time -Continue home Atorvastatin Dispo: Med/Surg for IV antibiotics pending evaluation from Ortho FEN: NPO, LR 125ml/hr x2L DVT: Hold chemoprophylaxis at this time Code: Full (2) Acute osteomyelitis of left ankle or foot: Admission and Anticipated Discharge Date Admission Date: January 29, 2021 Subjective Patient was seen in his room after returning from MRI scan. He has marked discomfort and swelling to his left posterior ankle with some dusky discoloration to the skin. He remains with low-grade temperature. He was quizzed about cardiovascular risk he said no history of cardiovascular problems he has no exertional chest pain exertional exertional dyspnea he has no orthopnea he said no bleeding dyscrasias or problems with previous procedures Given this is somewhat of a more urgent need to drain an abscess his medical risk is optimized given review of EKG and laboratories to proceed to surgical drainage Review of Systems Review of Systems: Mild distress and fatigue no headache, no visual changes no speech or swallowing issues no chest pain, pressure or palpitations no shortness of breath, cough or wheezes no abdominal pain, nausea or vomiting, diarrhea or constipation no dysuria, hematuria or frequency Tenderness and swelling to the left posterior ankle with some dusky discoloration. He also has open areas on his left first MTP area on the plantar aspect of his foot no back pain, CVA tenderness or radicular pain no focal signs of weakness he does have diabetic neuropathy to his feet no complaints of anxiety or depression.. Physical Exam Physical Exam: The patient appeared well nourished and normally developed. Vital signs as documented. Head exam is normocephalic atraumatic Neck is without JVD, thyromegaly, or carotid bruits. Lungs are clear to auscultation, no focal loss of breath sounds Cardiac exam, Rhythm is regular.. No murmurs, rubs or gallops. Abdominal exam reveals normal bowel sounds, soft non tender, no masses His left lower extremity has some dusky erythema and fullness with tenderness to examination to the posterior aspect of his left ankle correction up for more back of his leg he has limited sensation given his diabetic neuropathy he does have palpable pulses and capillary refill Neurologic exam is alert and oriented, no focal loss of strength or sensation Skin is with dusky changes to his posterior left ankle he also has 2 small open areas of his first MTP on the plantar aspect of his foot however at this time there is not significant surrounding cellulitis noted Psychologically is without concerns for anxiety or depression Results & Data Results & Data ([facility]) Vital Signs (Past 12 Hours) Vital Signs Temp Pulse Resp BP Pulse Ox 06/19/21 07:36 100.2 F H 96 H 18 145/88 H 96 01/29/21 21:59 99.0 F 90 18 110/70 98 PG Care Time/CCT Total # of Minutes Spent Total Time Spent with Patient: Total time spent is greater than 50% in coordination of care (as documented) at patient's floor/unit and/or counseling patient: Coding Level of Care Code 14614 Subseq Hosp Care Lvl 3 Diagnoses Cellulitis and abscess of left lower extremity L03.116; L02.416 Acute osteomyelitis of left ankle or foot M86.172
--- NOTE | 2021-01-30 09:46 | Pharmacy Report ---
Pharmacy Abx Initial Consult - Date of Service January 30, 2021 - Pharmacy Dosing Scope Date of Consult: 01/29 Consultation requested by: Dr. Meza Pharmacy is consulted to initiate vancomycin and Zosyn IV dosing therapy, order appropriate labs and adjust drug dose/frequency. - Subjective The patient is a 60 year old M admitted on 01/29/21 20:38. - Objective Height: 5 ft 9 in Weight: 111.13 kg Vital Signs (Past 12hrs): Vital Signs Temp Pulse Resp BP Pulse Ox 01/30/21 07:36 37.9 C H 96 H 18 145/88 H 96 01/29/21 21:59 37.2 C 90 18 110/70 98 Lab Results (24hrs): Laboratory Tests (24 Hours) 01/30/21 01/30/21 01/29/21 08:23 08:23 16:55 WBC 9.03 Neut # (Auto) 6.04 ESR 61 H Creatinine 0.79 Est Cr Clr Drug Dosing 122.2 C-Reactive Protein 01/29/21 01/29/21 16:55 16:55 WBC 11.12 H Neut # (Auto) 7.54 H ESR Creatinine 1.04 Est Cr Clr Drug Dosing Not Reportable C-Reactive Protein 18.50 H Micro Results: 01/29/21 16:58 Aerobic Blood Culture - Pending Blood Anaerobic Blood Culture - Pending 01/29/21 16:50 Aerobic Blood Culture - Pending Blood Anaerobic Blood Culture - Pending - Assessment & Plan Assessment * 60 year old M with PMHx DM2, Diabetic ulcer L foot, HTN, GERD, that presents after 1 month history of worsening swelling and tenderness of his LLE * Concern for possible osteo- plan for MRI * Blood cultures obtained and pending Plan Vancomycin IV * Estimated PK Parameters: Artemio 0.082 hr-1, t1/2 8.4 hr * Loading dose: 2500 mg (22.5 mg/kg) * Maintenance dose: 1500 mg IV (13.5 mg/kg) every 10 hours * Goal trough level: 15-20 mcg/mL * Trough level ordered for 01/31 @ 1130 Piperacillin/tazobactam * 4.5 g IV extended infusion every 8 hours for CrCl greater than 20 mL/min * Aggressive dosing selected due to BMI 35 or more Pharmacy will continue to follow and will adjust dose/frequency as necessary. Thank you.
[2021-01-30 10:11] LABS: Estimated Average Glucose 183 mg/dl
[2021-01-30] MEDS ORDERED: GADOBUTROL 65ML VIAL IV ONE (11:10)
[2021-01-30] MEDS ORDERED: MoRPHine SULFATE 2 MG/ML CARP IV PRN (11:57)
--- NOTE | 2021-01-30 12:46 | Magnetic Resonance Report ---
HISTORY: Diffuse edema and pain of the left leg. History of surgery within plantar aspect of the left foot approximately 2 months ago. TECHNIQUE: MRI of the entire left foot was performed. Multiplanar multisequence imaging was performed using standard departmental protocol. FINDINGS: Bone: Normal bone marrow signal is seen without abnormal enhancement to suggest osteomyelitis. There is diffuse subcutaneous soft tissue edema also fluid signal is seen within tendon planes of the plantar and dorsal surface of the foot without significant enhancement. There is 4.3 x 0.9 x 0.6 cm elongated area of high T1 and T2 signal with mild peripheral enhancement which might represent developing abscess. IMPRESSION: 1. No evidence of osteomyelitis. 2. Possible abscess at the plantar aspect of the foot. 3. Diffuse soft tissue edema. Electronically signed by: Heidi Sharp DO 01/30/2021 12:45 PM
[2021-01-30] MEDS: PIPERACILLIN/TAZOBACTAM 4.5 GM in DEXTROSE 5% 100 ML IV SCH ×2 (12:56→19:58)
--- NOTE | 2021-01-30 12:56 | Magnetic Resonance Report ---
MR ankle LT w con CLINICAL HISTORY: 60 years-old Male with Osteo, abscess. COMPARISON: None. TECHNIQUE: Multiplanar, multi sequence MRI of the left ankle was performed without contrast. FINDINGS: No acute fracture or dislocation seen. Incidental findings of 0.6 cm area of fluid signal is seen within anterior subcortical aspect of the calcaneus likely representing cysts. Diffuse fluid signal is seen within soft tissue extending to the intermuscular spaces, subcutaneous r egion and between tendons consistent with edema. Partial visualized 8.7 x 3.5 cm area of fluid collection between the Achilles tendon and distal tibia show peripheral enhancement after intravenous contrast administration suggestive of large abscess. V isualized portion of Achilles tendon is intact. IMPRESSION: 1. No evidence of osteomyelitis is seen at this time. 2. Large fluid collection with surrounding enhancement which is seen between Achilles tendon and pos terior aspect of the tibia suggestive of abscess. Report was sent to the patient's unit. 3. Diffuse soft tissue edema. 4. Additional findings as detailed above. ACT 112: Negative or not required by law. The above report was generated using voice recognition software. It may contain grammatical, syntax o r spelling errors. Electronically signed by: Heidi Sharp DO 01/30/2021 12:55 PM
--- NOTE | 2021-01-30 13:11 | Ultrasound Report ---
LEFT LOWER EXTREMITY ARTERIAL DOPPLER ULTRASOUND CLINICAL HISTORY: osteo wound healing COMPARISON STUDY: No previous studies for comparison. TECHNIQUE: Grayscale, color and duplex Doppler sonography of the arterial system of the left lower ex tremity was performed. FINDINGS: Note is made of a large complex fluid collection within the mid to distal posterior segment of the left leg which is better depicted on CT of January 29, 2021 and MRI of January 30, 2021. This is co nsistent with an abscess. No elevated velocities are identified within the left lower extremity. Ther e is triphasic or biphasic flow within the left common femoral, superficial femoral, popliteal, anter ior tibial, posterior tibial and peroneal veins. IMPRESSION: 1. Unremarkable left lower extremity arterial Doppler ultrasound. No vessel occlusion. No stenosis. 2. Large complex fluid collection of the posterior compartment of the mid to distal left lower leg, b margot depicted on prior CT. This is consistent with an abscess. ACT 112: Negative or not required by law. Electronically signed by: Caden Bliss M.D. 01/30/2021 1:10 PM
[2021-01-30] MEDS ORDERED: LIDOCAINE 2% 2 ML VIAL/AMP(20MG/ML) INFIL ONE (13:12)
[2021-01-30] MEDS ORDERED: PROPOFOL IV EMULSION 10 MG/ML 20 ML VIAL IV ONE (13:12)
[2021-01-30] MEDS ORDERED: fentaNYL citrate 100 MCG/2 ML VIAL ONE ×2 (13:12→14:03)
[2021-01-30] MEDS ORDERED: ONDANSETRON INJ 2 MG/ML 2 ML VIAL ONE (13:12)
[2021-01-30] MEDS ORDERED: MIDAZOLAM HCL 1 MG/ML 2ML VIAL ONE (13:12)
--- NOTE | 2021-01-30 13:32 | Anesthesiology Consultation ---
Date of Service January 30, 2021 Assessment & Plan (1) Encounter for pre-operative examination: Chart Review Chart Review: Acceptable Risk for Surgery ASA ASA3 History Surgery Operation Date: 01/30/21 14:00 Proposed Procedures p Incision and Drainage Left Foot(Left) - Daniel Pitts DO Height/Weight Height: 5 ft 9 in Weight: 111.13 kg Allergies Allergy/AdvReac Type Severity Reaction Status Date / Time No Known Allergies Allergy Verified 01/29/21 23:20 Medications Home Medications Medication Instructions Recorded Confirmed Last Taken alogliptin 25 mg PO DAILY 01/29/21 01/29/21 Unknown aspirin [Aspir-Low] 81 mg PO DAILY 01/29/21 01/29/21 Unknown atorvastatin 20 mg PO DAILY 01/29/21 01/29/21 Unknown cephalexin 500 mg PO QID 01/29/21 01/29/21 Unknown empagliflozin [Jardiance] 12.5 mg PO DAILY 01/29/21 01/29/21 Unknown famotidine [Pepcid] 20 mg PO BID 01/29/21 01/29/21 Unknown hydrochlorothiazide 25 mg PO DAILY 01/29/21 01/29/21 Unknown lisinopril 20 mg PO DAILY 01/29/21 01/29/21 Unknown loratadine 10 mg PO DAILY PRN 01/29/21 01/29/21 Unknown metformin 1,000 mg PO BID 01/29/21 01/29/21 Unknown metoprolol tartrate 50 mg PO BID 01/29/21 01/29/21 Unknown multivitamin 1 tab PO DAILY 01/29/21 01/29/21 Unknown Active Medications Generic Name Dose Route Start Last Admin Trade Name Isac PRN Reason Stop Dose Admin Acetaminophen 650 mg 01/29/21 23:00 01/30/21 08:49 Acetaminophen 325 Mg Tab PO 02/28/21 22:59 650 mg Q4H PRN Administration pain/fever Atorvastatin Calcium 20 mg 01/30/21 09:00 01/30/21 08:58 Atorvastatin 20 Mg Tab PO 03/01/21 08:59 20 mg DAILY FAHAD Administration Famotidine 20 mg 01/30/21 09:00 01/30/21 08:58 Famotidine 20 Mg Tab PO 03/01/21 08:59 20 mg BID FAHAD Administration Hydrochlorothiazide 25 mg 01/30/21 09:00 01/30/21 08:59 Hydrochlorothiazide 25 Mg Tab PO 03/01/21 08:59 25 mg DAILY FAHAD Administration Lactated Ringer's 1,000 mls @ 125 mls/hr 01/29/21 23:00 01/30/21 12:24 Lr IV 01/30/21 14:59 125 mls/hr .Q8H FAHAD Administration Vancomycin HCl 1,500 mg/ 530 mls @ 200 mls/hr 01/30/21 06:00 01/30/21 09:03 Sodium Chloride IV 03/13/21 05:59 Infused Q10H FAHAD Infusion Protocol Piperacillin Sod/Tazobactam 120 mls @ 30 mls/hr 01/30/21 10:00 01/30/21 12:56 Sod 4.5 gm/ Dextrose IV 03/13/21 09:59 30 mls/hr Q8H FAHAD Administration Protocol Insulin Aspart 0 units 01/30/21 00:00 01/30/21 12:33 Insulin Aspart 100 Units/Ml 3 Ml Pen SC 03/01/21 00:00 Not Given Q6 FAHAD Insulin Glargine 19 units 01/30/21 09:00 01/30/21 08:58 Insulin Glargine Solostar 100 Units/Ml 3 Ml Pen SC 03/01/21 08:59 19 units DAILY FAHAD Administration Lisinopril 20 mg 01/30/21 09:00 01/30/21 08:59 Lisinopril 20 Mg Tab PO 03/01/21 08:59 20 mg DAILY FAHAD Administration Metoprolol Tartrate 50 mg 01/30/21 09:00 01/30/21 08:59 Metoprolol Tartrate 50 Mg Tab PO 03/01/21 08:59 50 mg BID FAHAD Administration Morphine Sulfate 2 mg 01/30/21 11:57 01/30/21 12:19 Morphine Sulfate 2 Mg/Ml Carp IV 02/13/21 11:56 2 mg Q4 PRN Administration Pain Past Medical History Medical History (Updated 01/30/21 @ 13:37 by Elliott Green MD) Anemia DM type 2 (diabetes mellitus, type 2) GERD (gastroesophageal reflux disease) Hyperlipemia Hypertension Obesity Past Surgical History Surgical History (Updated 01/30/21 @ 13:31 by Elliott Green MD) History of foot operation Social History Smoking Status: Never smoker Hx Alcohol Use: No Hx Substance Use: No Physical Exam Vital Signs Last Vital Signs Temp 37.9 C H 01/30/21 07:36 Pulse 96 H 01/30/21 07:36 Resp 18 01/30/21 07:36 BP 145/88 H 01/30/21 07:36 Pulse Ox 96 01/30/21 07:36 Testing Laboratory Results 01/30/21 08:23 01/30/21 08:23 PT 11.0 Seconds (9.0-12.0) 01/29/21 16:55 INR 1.1 (0.9-1.1) 01/29/21 16:55 APTT 26.5 Seconds (21.0-31.0) 01/29/21 16:55 Hemoglobin A1c 8.0 % (4.5-5.6) H 01/30/21 08:23 01/30/21 01/30/21 12:25 06:12 POC Glucose 155 H 147 H
[2021-01-30] MEDS ORDERED: PHARMACY GLYCEMIC MGMT CONSULT PRN (13:51)
[2021-01-30] MEDS ORDERED: ROCURONIUM BROMIDE 10 MG/ML 5 ML VIAL IV ONE (14:03)
--- NOTE | 2021-01-30 14:03 | Magnetic Resonance Report ---
MR lower leg LT wo/w con CLINICAL HISTORY: 60 years-old Male presenting with osteo, abscess. TECHNIQUE: Multisequence, multiplanar MR imaging of the was performed IV contrast: None. COMPARISON: None. FINDINGS: No acute fracture or dislocation seen. Normal bone marrow signal is seen without enhancement after intravenous contrast administration, no e vidence of osteomyelitis. Large multiloculated fluid collection is seen posteriorly to the tibia and fibula which shows surroun ding peripheral enhancement suggestive of abscess formation. Above-mentioned multiloculated collectio n measure 15.4 cm in craniocaudal dimension and approximately 1.7 x 6 cm on axial image () Diffuse soft tissue edema as well as fluid signal is seen between muscular planes of the left calf. IMPRESSION: 1. No evidence of osteomyelitis. 2. Large multiloculated collection within posterior soft tissues of the calf with peripheral enhance ment suggestive of abscess as detailed above. 3. Prominent soft tissue edema. ACT 112: Negative or not required by law. Electronically signed by: Heidi Sharp DO 01/30/2021 2:01 PM
--- NOTE | 2021-01-30 14:07 | Orthopedic Consultation ---
Date of Consultation January 30, 2021 Assessment & Plan (1) Cellulitis and abscess of left lower extremity: MRI suggests:Large multiloculated collection within posterior soft tissues of the calf with peripheral enhancement suggestive of abscess Plan at this time will be irrigation and debridement left lower extremity foot abscess and I&D posterior ankle abscess. Risks and benefits were discussed at this time. His sister was present for evaluation and discussion. They also have concerns about transportation for further treatment once patient is able to get home due to him living alone. History of Present Illness Attending Physician: Tim Lino MD History of Present Illness 60 yo white male presenting with 2 small open wounds to the base of the great toe and swelling to the left lower extremity. He notes that he had surgery by Dr. Mejia about a year ago in which a tendon was removed due to infection. Overall he does not feel as though this has completely resolved since then however it has been progressively getting worse over the last month and presents today for increasing pain swelling and discomfort With continued concern for infection Allergies Allergy/AdvReac Type Severity Reaction Status Date / Time No Known Allergies Allergy Verified 01/29/21 23:20 Home Medications Medication Instructions Recorded Confirmed Type alogliptin 25 mg PO DAILY 01/29/21 01/29/21 History aspirin [Aspir-Low] 81 mg PO DAILY 01/29/21 01/29/21 History atorvastatin 20 mg PO DAILY 01/29/21 01/29/21 History cephalexin 500 mg PO QID 01/29/21 01/29/21 History empagliflozin [Jardiance] 12.5 mg PO DAILY 01/29/21 01/29/21 History famotidine [Pepcid] 20 mg PO BID 01/29/21 01/29/21 History hydrochlorothiazide 25 mg PO DAILY 01/29/21 01/29/21 History lisinopril 20 mg PO DAILY 01/29/21 01/29/21 History loratadine 10 mg PO DAILY PRN 01/29/21 01/29/21 History metformin 1,000 mg PO BID 01/29/21 01/29/21 History metoprolol tartrate 50 mg PO BID 01/29/21 01/29/21 History multivitamin 1 tab PO DAILY 01/29/21 01/29/21 History Patient History Medical History (Updated 01/30/21 @ 13:37 by Elliott Green MD) Anemia DM type 2 (diabetes mellitus, type 2) GERD (gastroesophageal reflux disease) Hyperlipemia Hypertension Obesity Surgical History (Updated 01/30/21 @ 13:31 by Elliott Green MD) History of foot operation Social History Smoking Status: Never smoker Hx Alcohol Use: No Hx Substance Use: No Preferred Language: Romanian Communication Ability: Effective Supervisor Gate Services Required: No Beliefs That Will Affect Care: None Current Living Situation: Alone Feels Safe at Home: Yes Safety Concerns: Feels Safe At This Time Assistive Devices: Glasses Physical Exam Musculoskeletal: Left lower extremity 2 small open areas to the plantar aspect of the great toe along the MTP joint. No surrounding erythema no active drainage. Left ankle posterior lateral aspect shows erythema and swelling to the distal half of the ankle no drainage or open wound. Pulses palpable and neurovascularly intact Results & Data ([facility]) Vital Signs (Past 12 Hours) Vital Signs Temp Pulse Resp BP Pulse Ox 01/30/21 07:36 37.9 C H 96 H 18 145/88 H 96
[2021-01-30] MEDS ORDERED: ONDANSETRON INJ 2 MG/ML 2 ML VIAL IV PRN ×2 (14:25→15:48)
[2021-01-30] MEDS ORDERED: LABETALOL HCL IV 5 MG/ML 20ML IV PRN (14:25)
[2021-01-30] MEDS ORDERED: ATROPINE SULFATE 0.1 MG/ML 10ML SYR IV PRN (14:25)
--- NOTE | 2021-01-30 14:28 | History & Physical Bridge Note ---
Date of Service January 30, 2021 History & Physical Bridge Note I have examined the patient, reviewed the History & Physical and in the interval since the performance of the History & Physical I have noted the following changes of clinical significance: no changes noted
--- NOTE | 2021-01-30 14:29 | Pharmacy Report ---
Pharmacy Glycemic Short Note 2 - Date of Service January 30, 2021 - Glycemic Short BSG Results (Last 24 hours): 01/29/21 01/29/21 01/30/21 16:55 23:25 06:12 Glucose 208 H POC Glucose 167 H 147 H 01/30/21 01/30/21 08:23 12:25 Glucose 151 H POC Glucose 155 H OUTPATIENT ANTIDIABETIC REGIMEN: * Alogliptin * Empagliflozin * Metformin * A1c = 8% on 01/30/21 ASSESSMENT: * 60yo T2DM male with suboptimal degree of outpatient control. Goal A1c below 7% based on age/co-morbidities * Pt is maintained on oral antidiabetic agents as an outpatient * Oral agents are not recommended for inpatient use d/t drug interactions, changing PO intake, and difficulty titrating for acute hyper/hypoglycemia. ADA recommends re-initiating outpatient oral agents 1-2 days prior to discharge if/when appropriate if they were held on admission. * Will hold oral agents for admission and utilize SQ basal bolus insulin regimen which is the recommended regimen for inpatient glycemic control. * Will initiate weight based insulin dosing for insulin shannan patient and titrate based on BSG trends. * Current orders seem adequate based on BSGs today - will continue current dosing for now. May need to increase once diet advanced. * Pt NPO today for I&D * Goal is to maintain BSG < 180 mg/dl (ideally <150 mg/dl) to prevent postop infectious compilations and promote wound healing. PLAN FOR INPATIENT GLYCEMIC CONTROL: * Hold outpatient oral diabetes medications * Basal insulin * Lantus 19 units SQ daily in AM * Scale Lantus this evening 0-15 units based on BSG - see MAR for details * Bolus insulin * NovoLog per scale ACHS or Q6hrs while NPO * Goal Range: Low 110 mg/dL - High 140 mg/dL * Correction Factor: 20 mg/dL/unit * Nutritional / Prandial insulin per carb ratio of 1 unit per 7 grams CHO consumed
[2021-01-30] MEDS ORDERED: GLYCOPYRROLATE 0.2 MG/ML VIAL ONE (15:10)
[2021-01-30] MEDS ORDERED: NEOSTIGMINE METHYLSULFATE 1 MG/ML 10ML VIAL ONE (15:10)
[2021-01-30] MEDS ORDERED: ceFAZolin 2000MG 2,000 MG/15 ML SYR IV ONE (15:38)
[2021-01-30] MEDS: HYDROmorphone INJ 1 MG/ML SYRINGE IV PRN ×3 (15:47→16:03)
[2021-01-30] MEDS ORDERED: HYDROmorphone INJ 1 MG/ML SYRINGE ONE (15:47)
--- NOTE | 2021-01-30 15:47 | Post Operative Brief Note ---
Immediate Post Op Note v1 Date of Surgery January 30, 2021 Pre & Post Diagnosis Operation Date: 01/30/21 14:00 Pre-Op Diagnosis: Abscess posterior left ankle, abscess plantar medial left foot, cellulitis and abscess of left lower extremity Post-Op Diagnosis: Abscess posterior left ankle, abscess plantar medial left foot, cellulitis and abscess of left lower extremity, suppurative tenosynovitis flexor hallucis longus, rupture flexor halluces longus tendon I identified the patient and participated in the time-out.: Yes Procedure Operation Date: 01/30/21 14:00 Actual Procedures p Incision and Drainage Left posterior ankle abscess, incision and drainage left plantar medial foot abscess, Excision of Infected flexor hallucis longus tendon Left Posterior Ankle, Cultures of Left Foot and Ankle(Left) - Daniel Pitts DO Surgeon Daniel Pitts DO Video Editing Intern Gabriela Saavedra PA-C Estimated Blood Loss 2 Findings Consistent with Post-Op Diagnosis Specimens Aerobic anaerobic Gram stain left posterior ankle abscess Aerobic anaerobic Gram stain left plantar medial foot abscess Infected tendon for permanent in formalin Drains Hemovac Drain and Other (1 inch iodoform gauze drains x2) Anesthesia Type General Complications none Disposition Accompanied Patient To Recovery: No Disposition: Recovery Room
[2021-01-30] MEDS ORDERED: oxyCODONE HCL IR 5 MG TAB (IMMEDIATE RELEASE) PO PRN (15:48)
[2021-01-30] MEDS ORDERED: NALOXONE HCL 0.4 MG/1 ML VIAL/CARP IV PRN (15:48)
[2021-01-30] MEDS ORDERED: bisacodyL 10 MG SUPP PR PRN (15:48)
[2021-01-30] MEDS ORDERED: MAGNESIUM HYDROXIDE SUSP 30 ML UDC PO PRN (15:48)
[2021-01-30] MEDS ORDERED: METOCLOPRAMIDE HCL INJ 5 MG/ML 2 ML VIAL IV PRN (15:48)
[2021-01-30] MEDS ORDERED: diphenhydrAMINE 50 MG/ML VIAL IV PRN (15:48)
--- NOTE | 2021-01-30 16:14 | Anesthesiology Progress Note ---
Date of Service January 30, 2021 Anesthesia Post Procedure Vital Signs Vital Signs: Temp Pulse Pulse Resp BP Pulse Ox 01/30/21 16:05 62 14 116/65 97 01/30/21 15:55 74 16 120/76 97 01/30/21 15:45 36.7 C 57 L 13 127/68 96 01/30/21 07:36 37.9 C H 96 H 18 145/88 H 96 01/29/21 21:59 37.2 C 90 18 110/70 98 01/29/21 21:00 18 L 18 148/88 H 98 01/29/21 19:00 88 18 152/88 H 98 01/29/21 17:29 92 H 18 167/95 H 99 Pain Intensity Left Ankle: Pain Intensity: 5 Transfer of Care Handoff Completed per policy Notes Mental Status: alert / awake / arousable Patient Amnestic to Procedure: Yes Nausea / Vomiting: adequately controlled Pain: adequately controlled Airway Patency, RR, SpO2: stable & adequate BP & HR: stable & adequate Hydration State: stable & adequate Anesthetic Complications: no major complications apparent
[2021-01-30] MEDS: MoRPHine SULFATE 4 MG/ML 1 ML CARP\\VIAL IV PRN ×2 (17:03→21:09)
[2021-01-30] MEDS: SODIUM CHLORIDE 0.9% 1000ML 1,000 ML IV SCH (17:10)
[2021-01-30] MEDS: DOCUSATE SODIUM 100 MG CAP PO SCH (19:57)
[2021-01-30] MEDS: SENNA 8.6 MG TAB PO SCH (19:58)
--- NOTE | 2021-01-30 20:32 | Operative Report (OR) ---
DATE OF PROCEDURE: 01/30/2021 PREOPERATIVE DIAGNOSES: 1. Left posterior ankle abscess. 2. Left plantar medial foot abscess. 3. Suppurative tenosynovitis of the flexor hallucis longus tendon. 4. Cellulitis. POSTOPERATIVE DIAGNOSES: 1. Left posterior ankle abscess. 2. Left plantar medial foot abscess. 3. Suppurative tenosynovitis of the flexor hallucis longus tendon. 4. Cellulitis, left lower extremity. 5. Rupture of the flexor hallucis longus tendon. PROCEDURES PERFORMED: 1. Left posterior ankle incision and drainage of large abscess. 2. Incision and drainage, left plantar medial foot abscess. 3. Excision of infected flexor hallucis longus tendon and the posterior ankle. SURGEON: Daniel Pitts DO. LICENSED MASS REAL ESTATE APPRAISER: Gabriela Saavedra PA-C who was present for patient positioning, sterile prep and drape, ma nagement of retractors and instruments. He was present through the critical portions of the case inc luding wound closure, application of sterile dressing and transport of the patient to recovery. ANESTHESIA: General. SPECIMENS: 1. Aerobic, anaerobic, Gram stain -- left posterior ankle. 2. Aerobic, anaerobic, Gram stain -- left plantar medial foot. 3. Tendon for permanent. DRAINS: A #10-Nigerian Hemovac drain in the posterior ankle in addition to 1 inch iodoform gauze drain s in the posterior ankle and in the plantar medial foot. COMPLICATIONS: None. BLOOD LOSS: 5 mL. PERTINENT HISTORY: This is a 60-year-old gentleman who has had chronic progressive and worsening lef t ankle and foot swelling. Apparently, he had been under the care of Dr. Recio at some type of wound care facility and the provider at some point per the patient removed some tendon in the bottom of his foot; however, this did help to allow a region of ulceration on the plantar medial foot to close; ho wever, he developed cellulitis and worsening swelling in the posterior aspect of his ankle, which the n eventually ended up in compelling him to present to [facility] yesterday, at which point he w as admitted under the care of Dr. Bishop. The patient had multiple imaging studies performed n oting a large abscess, at first consideration of osteomyelitis, but MRI imaging noted no evidence of osteomyelitis; however, significant abscess formations with suspected flexor hallucis longus tendon r upture. The patient was then taken to the operative suite as indicated. All potential risks, benefits, complications, alternatives, rehab potential for incomplete relief of symptoms, need for further surgery, DVT, PE, persistent pain, swelling, scarring, weakness, neurovasc ular injury, wound complications, hardware failure, nonunion, and need for further surgery or amputa tion were discussed with the patient. The patient decided to proceed with the procedure as indicated . DESCRIPTION OF PROCEDURE: The patient was taken to the operative suite and placed supine on the ope rating table. After review of consent and identification of appropriate operative site, the patient was anesthetized, LMA was placed. Tourniquet was placed high on the left thigh over cast padding. L eft lower extremity was sterilely prepped and draped in the usual sterile fashion, elevated, and tour niquet inflated to 350 mmHg. There is no exsanguination performed due to the nature of the infection . Next, after surgical timeout was performed, a 2 cm incision was made in the posterior lateral aspect of the left ankle. Careful dissection was performed with a 15 blade scalpel down to the subcutaneou s tissue. At this point, scissor dissection was performed in the interval anterior to the Achilles a nd posterior to the peroneals taking care to identify, retract and protect the sural nerve branch. N ext, the abscess pocket was entered and an abundant amount of foul-smelling brown milky liquid poured forth from the ankle, which had to be approximately 250 mL of fluid. This was cultured for aerobic, anaerobic, Gram stain specimens and this was then further evacuated with suction and debrided with a large curette, packed with clean lap sponges to use if for soft debridement. Next, lap sponges were removed and a large ruptured tendon was encountered. Under traction and direct visualization, this was identified as the suspected ruptured flexor hallucis longus tendon. Complet humberto infected with loss of structure with the appearance of a mop end. Degradation of the tendon fibe rs was evident. The damaged portion of the tendon extending proximally to the level of the musculote ndinous junction was then sharply excised using a Metzenbaum scissor. The tendon was then passed off as a specimen for permanent in formalin. Next, the site was then copiously irrigated with pulsatile lavage with 3 liters of sterile saline wit h Ancef until clear. Next, top gloves were changed, top sheet was changed and a 10-Nigerian Hem[address]ac dr campos was placed exiting slightly proximally and laterally followed by packing with 1-inch iodoform gau ze packing, and the proximal and distal aspects of the incision were then loosely closed with interru pted 3-0 nylon sutures with a significant amount of open tissue for adequate drainage. Next, attenti on was then directed toward the plantar medial aspect of the left foot. An incision was made just proximal to the first metatarsal head along the medial border of the foot. The incision was deepened to skin and subcutaneous tissue. Careful dissection was performed with te notomy scissors down to the level of the abscess. The abscess was encountered and noted to be milky brown liquid similar to that which was noted in the posteromedial ankle. This was then cultured for aerobic, anaerobic, Gram stain. Next, after evacuation of the abscess with suction, the site was the n carefully debrided with scissors and forceps and then debrided further with a curette. Next, the site was then copiously irrigated with 3 liters of sterile saline with Ancef and pulse lava ge until clear. Next, top gloves were changed and the site was then packed with 1-inch iodoform gauz e packing and closed loosely with interrupted 3-0 nylon sutures. Next, a sterile compressive dressin g was applied, overwrapped with an Andrez wrap. The tourniquet was released. The patient was awakened and taken to recovery in stable condition. Job ID: [id number]
[2021-01-30] MEDS: ACETAMINOPHEN 500 MG TAB PO SCH (21:08)
[2021-01-30] MEDS: COUGH DROP (SUGAR FREE) LOZ 24 LOZ/1 BOX BUCCAL PRN (22:10)
[2021-01-31] MEDS: INSULIN ASPART 100 UNITS/ML 3 ML PEN SC SCH ×5 (00:20→20:57)
--- NOTE | 2021-01-31 00:51 | Billing Data ---
Date of Service January 31, 2021 Coding Level of Care Code 70551 Initial Inpt Care Lvl 3
[2021-01-31] MEDS: SODIUM CHLORIDE 0.9% 1000ML 1,000 ML IV SCH (02:17)
[2021-01-31] MEDS: VANCOMYCIN HCL 1,500 MG in SODIUM CHLORIDE 0.9% 500 ML IV SCH ×3 (02:17→20:56)
[2021-01-31] MEDS: PIPERACILLIN/TAZOBACTAM 4.5 GM in DEXTROSE 5% 100 ML IV SCH ×3 (02:17→18:01)
[2021-01-31] MEDS: ACETAMINOPHEN 325 MG TAB PO PRN (03:54)
[2021-01-31] MEDS ORDERED: Nursing to Pharmacy Communication SCH (04:00)
[2021-01-31 05:55] LABS: Hematocrit (blood only) 30.2 % (42-52); Hemoglobin 10.2 g/dL (14.0-18.0); Mean Corpuscular Hemoglobin 27.9 pg (25-34); Mean Corpuscular Hgb Conc 33.8 g/dL (32-36); Mean Corpuscular Volume 82.5 fL (80-100); Mean Platelet Volume 8.2 fL (7.4-10.4); Platelet Count 235 K/uL (130-400); RDW Standard Deviation 39.4 fL (36.4-46.3); Red Blood Count 3.66 M/uL (4.7-6.1); White Blood Count 8.16 K/uL (4.8-10.8)
[2021-01-31] MEDS: ACETAMINOPHEN 500 MG TAB PO SCH ×3 (05:57→21:18)
[2021-01-31 06:24] LABS: BUN Creatinine Ratio 11.9 (10-20); Calcium 7.8 mg/dl (8.5-10.1); Creatinine Clr Calc Pharmacy 114.9 ml/min; Est GFR (African American) 110.3 ml/min; Est GFR (Non-African American) 95.2 ml/min; Potassium 3.6 mmol/L (3.5-5.1)
--- NOTE | 2021-01-31 09:25 | Orthopedic Progress Note ---
Date of Service January 31, 2021 Assessment & Plan (1) Cellulitis and abscess of left lower extremity: POD #1 Incision and Drainage Left Foot and Ankle, Excision of Infected Tendon Left Posterior Ankle, Cultures of Left Foot and Ankle continue current abx course. cultures pending. ASA 81 mg QD, Teds plan for discharge unknown at this time. Packing pulled today and will need pulled again tomorrow. Admission and Anticipated Discharge Date Admission Date: January 29, 2021 Subjective patient returning from physical therapy, he feels good. No complaints today. No cp, sob, dizziness, calf pain Physical Exam Physical Exam: left lower extremity erythema mostly resolved. packing in place. serous drainage. nvi. calves soft Results & Data ([facility]) Vital Signs (Past 12 Hours) Vital Signs Temp Pulse Resp BP Pulse Ox 01/31/21 06:56 37.4 C 69 18 132/71 93 01/31/21 04:25 36.1 C L 01/31/21 03:14 38.3 C H 79 18 121/71 95 01/30/21 22:45 38.1 C H 93 H 18 107/68 93
[2021-01-31] MEDS: ASPIRIN 81 MG ECTAB PO SCH (10:03)
[2021-01-31] MEDS: FAMOTIDINE 20 MG TAB PO SCH ×2 (10:04→20:30)
[2021-01-31] MEDS: DOCUSATE SODIUM 100 MG CAP PO SCH ×2 (10:04→20:30)
[2021-01-31] MEDS: hydroCHLOROthiazide 25 MG TAB PO SCH (10:04)
[2021-01-31] MEDS: ATORVASTATIN 20 MG TAB PO SCH (10:04)
[2021-01-31] MEDS: lisinopril 20 MG TAB PO SCH (10:04)
[2021-01-31] MEDS: INSULIN GLARGINE SOLOSTAR 100 UNITS/ML 3 ML PEN SC SCH ×2 (10:05→20:58)
[2021-01-31] MEDS: MULTIVITAMIN TAB PO SCH (10:06)
[2021-01-31] MEDS: METOPROLOL TARTRATE 50 MG TAB PO SCH ×2 (10:06→20:32)
[2021-01-31] MEDS ORDERED: VANCOMYCIN TROUGH ONE (11:30)
--- NOTE | 2021-01-31 11:59 | Pharmacy Report ---
Pharmacy Glycemic Short Note 2 - Date of Service January 31, 2021 - Glycemic Short BSG Results (Last 24 hours): 01/30/21 01/30/21 01/30/21 12:25 15:55 20:36 Glucose POC Glucose 155 H 146 H 151 H 01/31/21 01/31/21 01/31/21 00:18 05:40 08:11 Glucose 146 H POC Glucose 200 H 159 H OUTPATIENT ANTIDIABETIC REGIMEN: * Alogliptin * Empagliflozin * Metformin * A1c = 8% on 01/30/21 ASSESSMENT: 01/31: * Wisam received a total of 43 units of insulin yesterday * 29 units basal + 14 units bolus * BSGs were acceptable yesterday: [phone] mg/dL * Fasting BSG was 159 mg/dL which is above goal. * Will increase Lantus this morning and HS scale * Will also tighten CF and CR 01/30: * 60yo T2DM male with suboptimal degree of outpatient control. Goal A1c below 7% based on age/co-morbidities * Pt is maintained on oral antidiabetic agents as an outpatient * Oral agents are not recommended for inpatient use d/t drug interactions, changing PO intake, and difficulty titrating for acute hyper/hypoglycemia. ADA recommends re-initiating outpatient oral agents 1-2 days prior to discharge if/when appropriate if they were held on admission. * Will hold oral agents for admission and utilize SQ basal bolus insulin regimen which is the recommended regimen for inpatient glycemic control. * Will initiate weight based insulin dosing for insulin shannan patient and titrate based on BSG trends. * Current orders seem adequate based on BSGs today - will continue current dosing for now. May need to increase once diet advanced. * Pt NPO today for I&D * Goal is to maintain BSG < 180 mg/dl (ideally <150 mg/dl) to prevent postop infectious compilations and promote wound healing. PLAN FOR INPATIENT GLYCEMIC CONTROL: * Hold outpatient oral diabetes medications * Basal insulin - increased * Lantus 20 units SQ daily in AM * Scale Lantus this evening 10-20 units based on BSG - see MAR for details * Bolus insulin - tightened * NovoLog per scale ACHS or Q6hrs while NPO * Goal Range: Low 110 mg/dL - High 140 mg/dL * Correction Factor: 15 mg/dL/unit * Nutritional / Prandial insulin per carb ratio of 1 unit per 5 grams CHO consumed PLAN FOR DISCHARGE: * To be determined
--- NOTE | 2021-01-31 12:33 | Pharmacy Report ---
Pharmacy Abx Dose Short Note - Date of Service January 31, 2021 - Assessment & Plan Assessment * 60 year old M receiving vanc + Zosyn for treatment cellulitis and abscess of left lower extremity * Day #3 of antimicrobial therapy * MRI of the foot does not suggest osteomyelitis * Blood and foot cultures negative for growth * Ortho following. POD #1 Incision and Drainage left foot and ankle Plan Vancomycin * Trough level of 13 mcg/mL is subtherapeutic * Change to 1500 mg IV every 8 hours * Goal trough: 15 to 20 mcg/mL * Trough ordered for: 1130 on 02/01 Piperacillin/tazobactam * 4.5 g IV extended infusion every 8 hours for CrCl greater than 20 mL/min * Aggressive dosing selected due to BMI 35 or more Pharmacy will continue to follow and will adjust dose/frequency as necessary. Thank you.
--- NOTE | 2021-01-31 17:20 | Hospitalist Progress Note ---
Date of Service January 31, 2021 Assessment & Plan (1) Cellulitis and abscess of left lower extremity: Patient is a 60 year old male with PMHx DM2, Diabetic ulcer L foot, HTN, GERD, that presents after 1 month history of worsening swelling and tenderness of his LLE found to have a large multiloculated abscess within the mid to distal L lower leg in addition to suspected osteomyelitis of the lateral sesamoid bone. L leg Abscess and L foot osteomyelitis IMPRESSION: 1. A large multiloculated peripheral enhancing low density abnormality within the mid to distal lower leg posterior compartment which extends to the posterior ankle. This is primarily located within the pre-Achilles fat pad. This measures 16.2 x 6.7 x 3.5 cm is consistent with an abscess. This appears to also involve/invade into the distal aspect of the soleus muscles. 2. A 3 mm skin ulceration at the plantar surface of the first MTP joint with underlying bony destruction of the lateral sesamoid bone. This consistent with an osteomyelitis. 3. Diffuse cellulitis. 4. Mild infiltration within the sinus tarsi with possible small erosion at the anterior calcaneus. This small erosion is age indeterminate but could represent an additional site of osteoarthritis. -MRI of the foot does not suggest osteomyelitis -Arterial duplex of the lower leg show circulation appears to be intact -POD #1 I&D Left posterior ankle incision and drainage of large abscess, left plantar medial foot abscess, Excision of infected flexor hallucis longus tendon and the posterior ankle. -Blood cultures negative @ 24 hours -Continue vancomycin and Zosyn, ID consult following this with blood culture and surgical culture results Patient has no cardiovascular risk complaints prior to surgery examination is without heart failure no suggestion of unstable angina EKG shows sinus rhythm with a left anterior fascicular block -Records requested from the [facility] for patient's prior procedures DM2 -Appreciate pharmacy glycemic management -HgbA1c in pending -Hold home meds GERD -Continue home Pepcid HTN -Continue home Lisinopril, HCTZ, Metoprolol -If renal function begins to worsen and pressures stay stable, can consider holding Lisinopril and HCTZ while on Vanc and Zosyn HLD -Hold home ASA at this time -Continue home Atorvastatin Dispo: Med/Surg for continued IV antibiotics and orthopedic dressing management FEN: diabetic carb consistent diet DVT: VTE prophylaxis when ok by surgery Code: Full (2) Acute osteomyelitis of left ankle or foot: Admission and Anticipated Discharge Date Admission Date: January 29, 2021 Subjective Patient reports chills last night. POD #1. Packing pulled by orthopedics today. Blood cultures negative to date. Currently sitting in chair and alert and orie ntated. Review of Systems Review of Systems: All systems reviewed & are unremarkable except as noted in HPI & below Physical Exam Constitutional: WD/WN, vitals as above Eyes: + anicteric sclerae; normal pupil size Respiratory: normal respiratory effort, lungs clear to auscultation Cardiovascular: Rate/Rhythm: regular rate and regular rhythm Heart Sounds: no murmur Gastrointestinal (Abdomen): normal bowel sounds, soft, nontender, no hepatosplenomegaly Skin: Dressing not removed b/l lower extremities, No cellulitis beyond dressing up to knees. Psychiatric: A+Ox3, euthymic affect Results & Data Results & Data ([facility]) Vital Signs (Past 12 Hours) Vital Signs Temp Pulse Resp BP Pulse Ox 01/31/21 16:19 37.1 C 73 18 163/85 H 98 01/31/21 12:13 36.9 C 64 18 129/75 97 01/31/21 06:56 37.4 C 69 18 132/71 93 PG Care Time/CCT Total # of Minutes Spent Total Time Spent with Patient: Total time spent is greater than 50% in coordination of care (as documented) at patient's floor/unit and/or counseling patient: Coding Level of Care Code 44247 Subseq Hosp Care Lvl 2 Diagnoses Cellulitis and abscess of left lower extremity L03.116; L02.416 Acute osteomyelitis of left ankle or foot M86.172
[2021-01-31] MEDS: SENNA 8.6 MG TAB PO SCH (20:30)
[2021-02-01] MEDS: PIPERACILLIN/TAZOBACTAM 4.5 GM in DEXTROSE 5% 100 ML IV SCH ×3 (02:41→18:10)
[2021-02-01] MEDS: VANCOMYCIN HCL 1,500 MG in SODIUM CHLORIDE 0.9% 500 ML IV SCH ×2 (04:01→13:18)
[2021-02-01] MEDS: ACETAMINOPHEN 500 MG TAB PO SCH ×3 (06:08→21:09)
[2021-02-01] MEDS: MULTIVITAMIN TAB PO SCH (08:48)
[2021-02-01] MEDS: METOPROLOL TARTRATE 50 MG TAB PO SCH ×2 (08:48→20:51)
[2021-02-01] MEDS: ASPIRIN 81 MG ECTAB PO SCH (08:48)
[2021-02-01] MEDS: DOCUSATE SODIUM 100 MG CAP PO SCH ×2 (08:48→20:49)
[2021-02-01] MEDS: lisinopril 20 MG TAB PO SCH (08:48)
[2021-02-01] MEDS: FAMOTIDINE 20 MG TAB PO SCH ×2 (08:48→20:50)
[2021-02-01] MEDS: ATORVASTATIN 20 MG TAB PO SCH (08:48)
[2021-02-01] MEDS: hydroCHLOROthiazide 25 MG TAB PO SCH (08:48)
[2021-02-01] MEDS: INSULIN ASPART 100 UNITS/ML 3 ML PEN SC SCH ×4 (08:52→21:07)
[2021-02-01] MEDS: INSULIN GLARGINE SOLOSTAR 100 UNITS/ML 3 ML PEN SC SCH ×2 (08:55→21:08)
--- NOTE | 2021-02-01 09:44 | Orthopedic Progress Note ---
Date of Service February 01, 2021 Assessment & Plan (1) Cellulitis and abscess of left lower extremity: POD #1 Incision and Drainage Left Foot and Ankle, Excision of Infected Tendon Left Posterior Ankle, Cultures of Left Foot and Ankle Patient states he has been full weightbearing on the operative foot. I discussed with him about maintaining a nonweightbearing status until I can confirm this with Dr. Pitts. Cast shoe ordered for the left foot to protect the dressing. continue current abx course. cultures pending. ASA 81 mg QD, Teds Packing pulled today and will need pulled again tomorrow. Admission and Anticipated Discharge Date Admission Date: January 29, 2021 Subjective Postop day 2 Patient lying in bed awake and alert. No complaints this morning. Pain is controlled. Physical Exam Physical Exam: Moderate drainage noted on the dressing this morning. Dressing removed. Lateral and medial wound areas are looking good. Minimal to no erythema. Mild swelling. Remainder of packing from the medial foot wound removed. Mild bloody drainage noted after packing removed. 12 inches of packing removed from the lateral wound. Bloody drainage noted. Initially the drainage appeared somewhat thickened but this was only around the wound edge itself. Remainder of drainage was serous and bloody. Again no erythema around either of the wounds. Wounds redressed with Adaptic, 4 x 4's, ABDs, Kerlix, and Andrez wrap. Results & Data ([facility]) Vital Signs (Past 12 Hours) Vital Signs Temp Pulse Resp BP Pulse Ox 02/01/21 08:05 36.8 C 68 18 157/83 H 98 01/31/21 22:45 36.8 C 61 20 124/77 96
[2021-02-01] MEDS ORDERED: VANCOMYCIN TROUGH ONE (11:30)
[2021-02-01 11:55] LABS: Creatinine Clr Calc Pharmacy 114.9 ml/min; Est GFR (African American) 110.3 ml/min; Est GFR (Non-African American) 95.2 ml/min
--- NOTE | 2021-02-01 13:25 | Electrocardiogram Report ---
Test Reason : Blood Pressure : / mmHG Vent. Rate : 081 BPM Atrial Rate : 081 BPM P-R Int : 170 ms QRS Dur : 104 ms QT Int : 378 ms P-R-T Axes : 062 -68 061 degrees QTc Int : 439 ms Normal sinus rhythm Left anterior fascicular block Abnormal ECG No previous ECGs available Confirmed by George Chacon ([id number]) on 02/01/2021 1:24:52 PM Referred By: REFERRED SELF Confirmed By:George Chacon
--- NOTE | 2021-02-01 14:06 | Pharmacy Report ---
Pharm Abx/Gly Prg Nt - Date of Service February 01, 2021 - Scope Pharmacy has been consulted to manage vancomycin/Zosyn and glycemic control for this patient as per the Pharmacy & Therapeutics Committee approved dosing protocols. - Objective Vital Signs (Past 12hrs): Vital Signs Temp Pulse Resp BP Pulse Ox 02/01/21 08:05 36.8 C 68 18 157/83 H 98 Lab Results: Laboratory Tests (24 Hours) 02/01/21 02/01/21 11:25 11:25 Creatinine 0.84 Est Cr Clr Drug Dosing 114.9 Vancomycin Trough 18.7 Micro Results: 01/30/21 15:30 Gram Stain - Final Foot,Left 01/30/21 15:30 Gram Stain - Final Foot,Left Accuchecks BSG (last 24 hours):: 01/31/21 01/31/21 02/01/21 17:08 20:47 08:09 POC Glucose 114 H 180 H 150 H 02/01/21 12:08 POC Glucose 185 H HbA1C: Hemoglobin A1c 8.0 % (4.5-5.6) H 01/30/21 08:23 - Outpatient Anti-Diabetic Regimen Recent Pertinent Medications: Outpatient Anti-diabetic Regimen: * aloglipitin, empaglifoxin, metformin * A1c = 8 % 01/30/21 The patient is currently receiving: * Basal insulin: Lantus 20 units in the morning and 15 units in the evening * Correctional Insulin: Novolog Correction per scale ACHS Goal Range: Low 110 mg/dL - High 140 mg/dL Correction Factor: 15 mg/dL/unit * Prandial insulin: Per carb ratio of 1 unit per 5 grams CHO consumed * Oral Agents: Risk Factors for Insulin Resistance: * Infection: osteo and cellulitis (on vancomycin/Zosyn) * Diet: T2DM - Assessment & Plan Assessment: ID: * 60 year old M receiving vancomycin for treatment of leg abscess and osteomyelitis * Day # 3 of antimicrobial therapy Glycemic: * Patient is currently receiving an average of 76 units of insulin per day * 35 units of basal insulin * 44 units of prandial/correctional insulin * BSGs ranging 114- 180 over the past 24hrs * Risk factors for insulin resistance are constant over the past 24hrs * Infection is being adequately treated/Pt status improving * Now POD # 2 s/p surgery * Anticipating insulin regimen will need increased for the next 24hrs d/t : * AM Fasting BSG = 150 therefore Basal insulin will be increased slightly. Remove lower dose of 10 units of Lantus in the evening and lower threshold for Lantus 20 unit dose. * Total daily dose = 76 * Post-prandial BSGs are stable continue current regimen. Plan: ANTIMICROBIAL THERAPY Vancomycin * Trough level of 18.7 mcg/mL is therapeutic. There is some concern for accumulation due to body habitus so will extend interval for now. * Change to 1500 mg IV every 8 hours * Goal trough level: 15 to 20 mcg/mL * Trough level ordered for: 02/03/21 prior to 0400 dose INPATIENT GLYCEMIC CONTROL * Continue to hold outpatient oral diabetes medications Basal Insulin * Lantus 20 units SQ BID (15 units in evening if BSG < 160 mg/dL) Bolus Insulin * NovoLog per scale ACHS or Q6hrs while NPO * Goal Range: Low 110 mg/dL - High 140 mg/dL * Correction Factor: 15 mg/dL/unit * Nutritional / Prandial insulin per carb ratio of 1 unit per 5 grams CHO consumed * Please note that the plan above was derived based on current level of insulin resistance and hospital stress. These recommendations are appropriate for inpatient admission only. Plan of care upon discharge will need to be reassessed to avoid potential outpatient hypo/hyperglycemia. Glycemic Control Discharge Recommendations: TBD Pharmacy will follow patient and adjust orders on a daily basis. Thank you for allowing us to participate in this patients care.
--- NOTE | 2021-02-01 17:14 | Hospitalist Progress Note ---
Date of Service February 01, 2021 Assessment & Plan (1) Cellulitis and abscess of left lower extremity: Patient is a 60 year old male with PMHx DM2, Diabetic ulcer L foot, HTN, GERD, that presents after 1 month history of worsening swelling and tenderness of his LLE found to have a large multiloculated abscess within the mid to distal L lower leg in addition to suspected osteomyelitis of the lateral sesamoid bone. L leg Abscess and L foot osteomyelitis IMPRESSION: 1. A large multiloculated peripheral enhancing low density abnormality within the mid to distal lower leg posterior compartment which extends to the posterior ankle. This is primarily located within the pre-Achilles fat pad. This measures 16.2 x 6.7 x 3.5 cm is consistent with an abscess. This appears to also involve/invade into the distal aspect of the soleus muscles. 2. A 3 mm skin ulceration at the plantar surface of the first MTP joint with underlying bony destruction of the lateral sesamoid bone. This consistent with an osteomyelitis. 3. Diffuse cellulitis. 4. Mild infiltration within the sinus tarsi with possible small erosion at the anterior calcaneus. This small erosion is age indeterminate but could represent an additional site of osteoarthritis. -MRI of the foot does not suggest osteomyelitis -Arterial duplex of the lower leg show circulation appears to be intact -POD #2 I&D Left posterior ankle incision and drainage of large abscess, left plantar medial foot abscess, Excision of infected flexor hallucis longus tendon and the posterior ankle. -Blood cultures negative @ 48 hours -1/2 surgical gram stain with GPC -Continue vancomycin and Zosyn, ID consult following this with blood culture and surgical culture results Patient has no cardiovascular risk complaints prior to surgery examination is without heart failure no suggestion of unstable angina EKG shows sinus rhythm with a left anterior fascicular block -Records requested from the [facility] for patient's prior procedures DM2 -Appreciate pharmacy glycemic management -HgbA1c 8.0 -Hold home meds GERD -Continue home Pepcid HTN -Continue home Lisinopril, HCTZ, Metoprolol -If renal function begins to worsen and pressures stay stable, can consider holding Lisinopril and HCTZ while on Vanc and Zosyn HLD -Continue aspirin -Continue home Atorvastatin Dispo: Med/Surg for continued IV antibiotics and orthopedic dressing management FEN: diabetic carb consistent diet DVT: VTE prophylaxis when ok by surgery Code: Full (2) Acute osteomyelitis of left ankle or foot: Admission and Anticipated Discharge Date Admission Date: January 29, 2021 Subjective Pain under control in foot 10/21, no radiation, around surgical site. No fever or chills. Packing being removed by surgery. ID consult done earlier today but recommendations not yet available. Review of Systems Review of Systems: All systems reviewed & are unremarkable except as noted in HPI & below Physical Exam Constitutional: WD/WN, vitals as above Eyes: + anicteric sclerae; normal pupil size Respiratory: normal respiratory effort, lungs clear to auscultation Cardiovascular: Rate/Rhythm: regular rate and regular rhythm Heart Sounds: no murmur Gastrointestinal (Abdomen): normal bowel sounds, soft, nontender, no hepatosplenomegaly Psychiatric: A+Ox3, euthymic affect Results & Data Results & Data ([facility]) Vital Signs (Past 12 Hours) Vital Signs Temp Pulse Resp BP Pulse Ox 02/01/21 16:32 36.8 C 65 18 147/81 H 96 02/01/21 08:05 36.8 C 68 18 157/83 H 98 PG Care Time/CCT Total # of Minutes Spent Total Time Spent with Patient: Total time spent is greater than 50% in coordination of care (as documented) at patient's floor/unit and/or counseling patient: Coding Level of Care Code 04982 Subseq Hosp Care Lvl 2 Diagnoses Cellulitis and abscess of left lower extremity L03.116; L02.416 Acute osteomyelitis of left ankle or foot M86.172
[2021-02-01] MEDS: SENNA 8.6 MG TAB PO SCH (20:52)
[2021-02-01] MEDS ORDERED: VANCOMYCIN HCL 1,500 MG in SODIUM CHLORIDE 0.9% 500 ML IV SCH (22:00)
[2021-02-01] MEDS: COUGH DROP (SUGAR FREE) LOZ 24 LOZ/1 BOX BUCCAL PRN (23:04)
[2021-02-02] MEDS: PIPERACILLIN/TAZOBACTAM 4.5 GM in DEXTROSE 5% 100 ML IV SCH ×3 (01:30→17:46)
[2021-02-02] MEDS: ACETAMINOPHEN 500 MG TAB PO SCH ×3 (05:23→21:51)
[2021-02-02 06:04] LABS: Basophils # (auto) 0.02 K/uL (0-0.2); Basophils % (auto) 0.4 %; Eosinophils # (auto) 0.22 K/uL (0-0.5); Eosinophils % (auto) 3.9 %; Hematocrit (blood only) 31.6 % (42-52); Hemoglobin 10.4 g/dL (14.0-18.0); Immature Granulocytes # (auto) 0.04 K/uL (0.00-0.02); Immature Granulocytes % (auto) 0.7 %; Lymphocytes # (auto) 2.55 K/uL (1.2-3.4); Lymphocytes % (auto) 45.2 %; Mean Corpuscular Hemoglobin 28.1 pg (25-34); Mean Corpuscular Hgb Conc 32.9 g/dL (32-36); Mean Corpuscular Volume 85.4 fL (80-100); Mean Platelet Volume 8.3 fL (7.4-10.4); Monocytes % (auto) 10.6 %; Neutrophils # (auto) 2.21 K/uL (1.4-6.5); Neutrophils % (auto) 39.2 %; Platelet Count 290 K/uL (130-400); RDW Coefficient of Variation 13.2 % (11.5-14.5); RDW Standard Deviation 41.1 fL (36.4-46.3); White Blood Count 5.64 K/uL (4.8-10.8)
[2021-02-02 06:38] LABS: BUN Creatinine Ratio 11.2 (10-20); Calcium 8.6 mg/dl (8.5-10.1); Creatinine Clr Calc Pharmacy 116.3 ml/min; Est GFR (African American) 110.8 ml/min; Est GFR (Non-African American) 95.6 ml/min; Potassium 3.4 mmol/L (3.5-5.1)
[2021-02-02] MEDS ORDERED: INSULIN GLARGINE SOLOSTAR 100 UNITS/ML 3 ML PEN SC SCH ×2 (09:00→21:00)
[2021-02-02] MEDS ORDERED: POTASSIUM CHLORIDE CRTAB 20 MEQ TABCR PO ONE (09:15)
[2021-02-02] MEDS: ASPIRIN 81 MG ECTAB PO SCH (09:26)
[2021-02-02] MEDS: MULTIVITAMIN TAB PO SCH (09:26)
[2021-02-02] MEDS: METOPROLOL TARTRATE 50 MG TAB PO SCH ×2 (09:26→21:02)
[2021-02-02] MEDS: lisinopril 20 MG TAB PO SCH (09:26)
[2021-02-02] MEDS: hydroCHLOROthiazide 25 MG TAB PO SCH (09:26)
[2021-02-02] MEDS: ATORVASTATIN 20 MG TAB PO SCH (09:26)
[2021-02-02] MEDS: FAMOTIDINE 20 MG TAB PO SCH ×2 (09:27→20:59)
[2021-02-02] MEDS: DOCUSATE SODIUM 100 MG CAP PO SCH ×2 (09:27→20:58)
--- NOTE | 2021-02-02 09:35 | Pharmacy Report ---
Pharmacy Glycemic Short Note 2 - Date of Service February 02, 2021 - Glycemic Short BSG Results (Last 24 hours): 02/01/21 02/01/21 02/01/21 12:08 17:18 20:55 Glucose POC Glucose 185 H 204 H 180 H 02/02/21 02/02/21 05:36 07:55 Glucose 135 H POC Glucose 157 H OUTPATIENT ANTIDIABETIC REGIMEN: * Alogliptin * Empagliflozin * Metformin * A1c = 8% on 01/30/21 ASSESSMENT: 02/02 * Pt has received 86 units of insulin over the past 24hrs * 40 units of basal with Lantus * 46 units of bolus with NovoLog * BSGs [id number] mg/dl * AM fasting BSG still elevated at 157 mg/dl; will increase PM dose of Lantus * Post-prandial BSGs also elevated - will tighten CR * Goal is to maintain BSG < 180 mg/dl (ideally <150 mg/dl) to prevent postop infectious compilations and promote wound healing. 01/31: * Wisam received a total of 43 units of insulin yesterday * 29 units basal + 14 units bolus * BSGs were acceptable yesterday: [id number] mg/dL * Fasting BSG was 159 mg/dL which is above goal. * Will increase Lantus this morning and HS scale * Will also tighten CF and CR 01/30: * 60yo T2DM male with suboptimal degree of outpatient control. Goal A1c below 7% based on age/co-morbidities * Pt is maintained on oral antidiabetic agents as an outpatient * Oral agents are not recommended for inpatient use d/t drug interactions, changing PO intake, and difficulty titrating for acute hyper/hypoglycemia. ADA recommends re-initiating outpatient oral agents 1-2 days prior to discharge if/when appropriate if they were held on admission. * Will hold oral agents for admission and utilize SQ basal bolus insulin regimen which is the recommended regimen for inpatient glycemic control. * Will initiate weight based insulin dosing for insulin shannan patient and titrate based on BSG trends. * Current orders seem adequate based on BSGs today - will continue current dosing for now. May need to increase once diet advanced. * Pt NPO today for I&D * Goal is to maintain BSG < 180 mg/dl (ideally <150 mg/dl) to prevent postop infectious compilations and promote wound healing. PLAN FOR INPATIENT GLYCEMIC CONTROL: * Hold outpatient oral diabetes medications * Basal insulin - increased PM dose * Lantus 20 units SQ daily in AM * Lantus 25 units SQ PM * Bolus insulin - tightened CR, loosen CF * NovoLog per scale ACHS or Q6hrs while NPO * Goal Range: Low 110 mg/dL - High 140 mg/dL * Correction Factor: 20 mg/dL/unit * Nutritional / Prandial insulin per carb ratio of 1 unit per 4 grams CHO consumed PLAN FOR DISCHARGE: * To be determined
[2021-02-02] MEDS: INSULIN ASPART 100 UNITS/ML 3 ML PEN SC SCH ×4 (09:38→21:04)
[2021-02-02] MEDS: ACETAMINOPHEN 325 MG TAB PO PRN (09:53)
--- NOTE | 2021-02-02 17:11 | Orthopedic Progress Note ---
Date of Service February 02, 2021 Assessment & Plan (1) Cellulitis and abscess of left lower extremity: POD #2 Incision and Drainage Left Foot and Ankle, Excision of Infected Tendon Left Posterior Ankle, Cultures of Left Foot and Ankle Nonweightbearing left lower extremity. Culture results as noted. Vancomycin discontinued. Patient currently on Zosyn with plans to continue once discharge. ASA 81 mg QD, Teds We will pull remainder of packing tomorrow morning. DC planning-patient is being transferred down to the [place] facility in [place]. Patient states that they have a wound care center that he has been to before and will be using them in the interim. He states he will follow up with Dr. Pitts which will be 10 to 14 days from the day of surgery. Admission and Anticipated Discharge Date Admission Date: January 29, 2021 Subjective Postop day 2 Patient awake alert. No complaints today. Getting arrangements to have the patient transferred to [facility] for further care. Denies pain at this point and states his pain control has been good. Results & Data ([facility]) Vital Signs (Past 12 Hours) Vital Signs Temp Pulse Resp BP Pulse Ox 02/02/21 07:04 36.8 C 60 20 173/84 H 97 Laboratory Results Microbiology 01/30/21 15:30 Foot,Left Gram Stain - Final 01/30/21 15:30 Foot,Left Aerobic and Anaerobic Culture - Preliminary Bacteroides fragilis Finegoldia magna 01/30/21 15:30 Foot,Left Gram Stain - Final 01/30/21 15:30 Foot,Left Aerobic and Anaerobic Culture - Preliminary Bacteroides fragilis Finegoldia magna
--- NOTE | 2021-02-02 19:26 | Hospitalist Progress Note ---
Date of Service February 02, 2021 Assessment & Plan (1) Cellulitis and abscess of left lower extremity: Patient is a 60 year old male with PMHx DM2, Diabetic ulcer L foot, HTN, GERD, that presents after 1 month history of worsening swelling and tenderness of his LLE found to have a large multiloculated abscess within the mid to distal L lower leg in addition to suspected osteomyelitis of the lateral sesamoid bone. L leg Abscess and L foot osteomyelitis IMPRESSION: 1. A large multiloculated peripheral enhancing low density abnormality within the mid to distal lower leg posterior compartment which extends to the posterior ankle. This is primarily located within the pre-Achilles fat pad. This measures 16.2 x 6.7 x 3.5 cm is consistent with an abscess. This appears to also involve/invade into the distal aspect of the soleus muscles. 2. A 3 mm skin ulceration at the plantar surface of the first MTP joint with underlying bony destruction of the lateral sesamoid bone. This consistent with an osteomyelitis. 3. Diffuse cellulitis. 4. Mild infiltration within the sinus tarsi with possible small erosion at the anterior calcaneus. This small erosion is age indeterminate but could represent an additional site of osteoarthritis. -MRI of the foot does not suggest osteomyelitis -Arterial duplex of the lower leg show circulation appears to be intact -POD #3 I&D Left posterior ankle incision and drainage of large abscess, left plantar medial foot abscess, Excision of infected flexor hallucis longus tendon and the posterior ankle. -Blood cultures negative @ 48 hours -1/2 surgical gram stain with GPC -Continue Zosyn alone for total of 3 weeks post operatively, appreciate ID consult -Discussed with MA today - prior culture with strep agalactiae, no MRSA previously grown -Discussed with microbiology and no surgical cultures growing MRSA, pending full evaluation, appears polymicrobial but mainly strep DM2 -Appreciate pharmacy glycemic management -HgbA1c 8.0 -Hold home meds GERD -Continue home Pepcid HTN -Continue home Lisinopril, HCTZ, Metoprolol -If renal function begins to worsen and pressures stay stable, can consider holding Lisinopril and HCTZ while on Vanc and Zosyn HLD -Continue aspirin -Continue home Atorvastatin Dispo: Med/Surg for continued IV antibiotics and orthopedic dressing management. d/c planned to [facility] tomorrow. FEN: diabetic carb consistent diet DVT: VTE prophylaxis when ok by surgery Code: Full (2) Acute osteomyelitis of left ankle or foot: Admission and Anticipated Discharge Date Admission Date: January 29, 2021 Subjective No fevers, chills. Patient feeling well. Pain severity 2/10 in foot. Pending orthopedics taking out packing today. Possible discharge to [facility] in [place] for ongoing antibiotics for 3 weeks per ID consult. Review of Systems Review of Systems: All systems reviewed & are unremarkable except as noted in HPI & below Physical Exam Constitutional: WD/WN, vitals as above Eyes: + anicteric sclerae; normal pupil size Respiratory: normal respiratory effort, lungs clear to auscultation Cardiovascular: Rate/Rhythm: regular rate and regular rhythm Heart Sounds: no murmur Gastrointestinal (Abdomen): normal bowel sounds, soft, nontender, no hepatosplenomegaly Psychiatric: A+Ox3, euthymic affect PG Care Time/CCT Total # of Minutes Spent Total Time Spent with Patient: Total time spent is greater than 50% in coordination of care (as documented) at patient's floor/unit and/or counseling patient: Coding Level of Care Code 99818 Subseq Hosp Care Lvl 2 Diagnoses Cellulitis and abscess of left lower extremity L03.116; L02.416 Acute osteomyelitis of left ankle or foot M86.172
[2021-02-02] MEDS ORDERED: SODIUM CHLORIDE 0.65% NA SOLN 45 ML (OCEAN) ONE (20:33)
[2021-02-02] MEDS: SENNA 8.6 MG TAB PO SCH (20:59)
[2021-02-03] MEDS: PIPERACILLIN/TAZOBACTAM 4.5 GM in DEXTROSE 5% 100 ML IV SCH ×2 (02:39→09:35)
[2021-02-03] MEDS ORDERED: VANCOMYCIN TROUGH ONE (03:30)
[2021-02-03] MEDS: ACETAMINOPHEN 500 MG TAB PO SCH (05:33)
[2021-02-03 07:19] LABS: Creatinine Clr Calc Pharmacy 100.5 ml/min; Est GFR (African American) 99.2 ml/min; Est GFR (Non-African American) 85.6 ml/min
[2021-02-03] MEDS: METOPROLOL TARTRATE 50 MG TAB PO SCH (07:36)
[2021-02-03] MEDS: MULTIVITAMIN TAB PO SCH (07:37)
[2021-02-03] MEDS: FAMOTIDINE 20 MG TAB PO SCH (07:37)
[2021-02-03] MEDS: hydroCHLOROthiazide 25 MG TAB PO SCH (07:38)
[2021-02-03] MEDS: ATORVASTATIN 20 MG TAB PO SCH (07:38)
[2021-02-03] MEDS: lisinopril 20 MG TAB PO SCH (07:38)
[2021-02-03] MEDS: ASPIRIN 81 MG ECTAB PO SCH (07:38)
[2021-02-03] MEDS: DOCUSATE SODIUM 100 MG CAP PO SCH (07:39)
--- NOTE | 2021-02-03 08:22 | Orthopedic Progress Note ---
Date of Service February 03, 2021 Assessment & Plan (1) Cellulitis and abscess of left lower extremity: POD #3 Incision and Drainage Left Foot and Ankle, Excision of Infected Tendon Left Posterior Ankle, Cultures of Left Foot and Ankle Nonweightbearing left lower extremity. Culture results as noted. Vancomycin discontinued. Patient currently on Zosyn with plans to continue once discharge. ASA 81 mg QD, Teds Continue daily dressing changes. All packing removed. DC planning-patient is being transferred down to the [place] facility in [place]. Patient states that they have a wound care center that he has been to before and will be using them in the interim. He states he will follow up with Dr. Pitts which will be 10 to 14 days from the day of surgery. Admission and Anticipated Discharge Date Admission Date: January 29, 2021 Subjective Postop day 3 Patient sitting up in bed awake and alert. States he had a little bit more pain earlier this morning but is doing good now. States his pain was rated around a 3. No other complaints this morning. Denies shortness of breath, chest pain, lightheadedness. Patient is anxious to be discharged today. Physical Exam Physical Exam: Dressings are clean, dry, and intact this morning. Dressing removed. Mild drainage on the lateral wound dressing. No drainage on the medial wound dressing. Remainder of packing removed from the lateral wound. Was able to express a small amount of thick bloody drainage consistent with iodoform gauze use. Continued palpation to express any further drainage was unsuccessful. No erythema around the wound. Swelling is down. Medial wound is benign. No erythema, no swelling. Moving his toes well. Capillary refill is less than 2 seconds. Wounds redressed. Results & Data ([facility]) Vital Signs (Past 12 Hours) Vital Signs Temp Pulse Resp BP Pulse Ox 02/03/21 06:37 36.7 C 58 L 20 169/93 H 96 02/02/21 23:15 36.8 C 52 L 16 151/85 H 97 02/02/21 21:07 36.8 C 62 18 167/94 H 95
[2021-02-03] MEDS ORDERED: INSULIN GLARGINE SOLOSTAR 100 UNITS/ML 3 ML PEN SC SCH (09:00)
[2021-02-03] MEDS ORDERED: NAPROXEN 250 MG TAB PO ONE (09:01)
[2021-02-03] MEDS: INSULIN ASPART 100 UNITS/ML 3 ML PEN SC SCH (09:22)
--- NOTE | 2021-02-03 10:19 | Discharge Summary ---
Date of Service February 03, 2021 Admission HPI Per Admitting Provider Patient is a 60 year old male with PMHx DM2, Diabetic ulcer L foot, HTN, GERD, that presents after 1 month history of worsening swelling and tenderness of his LLE found to have a large multiloculated abscess within the mid to distal L lower leg in addition to suspected osteomyelitis of the lateral sesamoid bone. Patient notes that he had undergone surgery 1 month ago (cannot recall the specifics) in regards to a diabetic foot ulcer on the ball of his L foot at the [place] with Dr. Mejia and since then has not noticed complete healing. He states that shortly after the procedure, within the same week, he was [place] in [place] when he sprained his L ankle of the same foot. Since then patient has noticed worsening swelling, redness, and pain of his LLE. He states that he has very minimal feeling of his feet at baseline due to his diabetes. He notes that he has also been taking Keflex without much improvement. He notes that presents today due to worsening pain in his L leg. He notes the pain is a 0/10 currently, but can get up to a 6-10/10 that is pressure. He denies any fever, chills, SOB, chest pain, abdominal pain, headache, NVD, constipation, dysuria, hematuria otherwise. Med Hx: DM2, HTN, GERD, Diabetic foot ulcer Surg Hx: L foot debridement Soc Hx: No tobacco, alcohol, illicit drug use. Admission Exam Per Admitting Provider Constitutional: WD/WN, vitals as above Eyes: PERRL, conjunctivae normal, anicteric sclerae ENMT: external ear and nose normal, oropharynx normal Neck: trachea midline, no thyromegaly Respiratory: normal respiratory effort, lungs clear to auscultation Cardiovascular: Rate/Rhythm: regular rate and regular rhythm Heart Sounds: no murmur Vessels: posterior tibial pulses present and dorsalis pedis pulses present Extremities: + calf tenderness (L leg ) and + edema (L>R +1 ) Gastrointestinal (Abdomen): normal bowel sounds, soft, nontender, no hepatosplenomegaly Musculoskeletal: LE Strength 5/5 b/l Minimal sensation of the feet b/l Slight TTP of the posterior distal L leg with fluctuance and erythema spanning distal from the gastrocnemius muscle body to the achilles tendon Non-bleeding and scarred ulceration of the distal plantar L foot at the 1st MTP Neurologic: + abnormal touch/pain/proprioception (limited sensation of feet b/l ) Psychiatric: A+Ox3, euthymic affect Principal Diagnosis Left posterior ankle abscess. Left plantar medial foot abscess. Suppurative tenosynovitis of the flexor hallucis longus tendon. Cellulitis, left lower extremity. Rupture of the flexor hallucis longus tendon. Discharge Exam Constitutional WD/WN, vitals as above Eyes + anicteric sclerae; normal pupil size Respiratory normal respiratory effort, lungs clear to auscultation Cardiovascular Rate/Rhythm: regular rate and regular rhythm Heart Sounds: no murmur Gastrointestinal (Abdomen) normal bowel sounds, soft, nontender, no hepatosplenomegaly Psychiatric A+Ox3, euthymic affect Discharge Data Allergies Allergy/AdvReac Type Severity Reaction Status Date / Time No Known Allergies Allergy Verified 01/29/21 23:20 Consultations 01/29/21 19:16 ED Decision to Admit Stat 01/29/21 23:00 Consult Health Information Management Stat Consult Orthopedic Surgery Routine 02/01/21 07:16 Consult Infectious Diseases Routine Procedures Performed Operation Date: 01/30/21 14:00 Actual Procedures p Incision and Drainage Left Foot and Ankle, Excision of Infected Tendon Left Posterior Ankle, Cultures of Left Foot and Ankle(Left) - Daniel Pitts, Ordered Studies 01/29/21 16:37 CT ankle LT w con Stat 01/29/21 16:43 CT foot LT w con Stat 01/29/21 17:45 CT tib/fib LT w con Stat IMPRESSION: 1. A large multiloculated peripheral enhancing low density abnormality within the mid to distal lower leg posterior compartment which extends to the posterior ankle. This is primarily located within the pre-Achilles fat pad. This measures 16.2 x 6.7 x 3.5 cm is consistent with an abscess. This appears to also involve/invade into the distal aspect of the soleus muscles. 2. A 3 mm skin ulceration at the plantar surface of the first MTP joint with underlying bony destruction of the lateral sesamoid bone. This consistent with an osteomyelitis. 3. Diffuse cellulitis. 4. Mild infiltration within the sinus tarsi with possible small erosion at the anterior calcaneus. This small erosion is age indeterminate but could represent an additional site of osteoarthritis. 01/30/21 US arterial duplex LE LT Urgent IMPRESSION: 1. Unremarkable left lower extremity arterial Doppler ultrasound. No vessel occlusion. No stenosis. 2. Large complex fluid collection of the posterior compartment of the mid to distal left lower leg, better depicted on prior CT. This is consistent with an abscess. 01/30/21 09:07 MR ankle LT w con Stat IMPRESSION: 1. No evidence of osteomyelitis is seen at this time. 2. Large fluid collection with surrounding enhancement which is seen between Achilles tendon and posterior aspect of the tibia suggestive of abscess. Report was sent to the patient's unit. 3. Diffuse soft tissue edema. 4. Additional findings as detailed above. There is poor visualization of the flexor hallucis longus tendon which probably medially displaced. Tear cannot be completely ruled out. MR foot LT wo/w con Stat IMPRESSION: 1. No evidence of osteomyelitis. 2. Possible abscess at the plantar aspect of the foot. 3. Diffuse soft tissue edema. MR lower leg LT wo/w con Stat IMPRESSION: 1. No evidence of osteomyelitis. 2. Large multiloculated collection within posterior soft tissues of the calf with peripheral enhancement suggestive of abscess as detailed above. 3. Prominent soft tissue edema. Hospital Course (1) Cellulitis and abscess of left lower extremity: Wisam Stratton is a 60 year old male admitted at [facility] from January 29-2020 due to 1 month of worsening swelling and tenderness of his left lower extremity. This appeared to be cellulitic with subsequent imaging confirmed a large multiloculated collection in the posterior soft tissues of the calf with peripheral enhancement suggestive of an abscess. Initially treated with IV Vancomycin and Zosyn. On review by orthopedics it was recommended this was treated operatively which was performed on 01/30/2021 with left posterior ankle incision and drainage of large abscess, incision and drainage of left plantar medial foot abscess and excision of infected flexor hallucis longus tendon and the posterior ankle. Blood cultures were subsequently negative. Full surgical cultures are pending at discharge but growing multiple organisms none of which appear to be MRSA. On review by infectious disease it was recommended to continue on IV Zosyn for the duration of your antibiotic course for a total of 3 weeks post operatively from 01/30/2021. While on Zosyn please monitor BMP should be monitored once weekly. US guided line was placed t hat can remain in for the duration of your treatment. With regards to his diabetes. HbA1C 8.0. This was managed with basal bolus inulin during his admission but recommend Jardiance increased on discharge. Recommend switching to insulin regimen if glucose continues to not be well controlled. Per orthopedic recommendations will use aspirin 81mg BID for VTE prophylaxis while non-weight bearing and then go back to 81mg PO daily. Please see additional orthopedic recommendations as below (under discharge instructions). (2) Acute osteomyelitis of left ankle or foot: Total Time Total Time Spent Total Time Spent (In Minutes): 50 Total Time Includes: Examination of the Patient, Discharge Planning, Medication Reconciliation and Communication With Other Providers Discharge Plan Discharge Items Patient Disposition: Transfer Inpatient Rehab Fac Reason For Visit: L LEG ABSCESS AND OSTEO Discharge Diagnosis: Left posterior ankle abscess. Left plantar medial foot abscess. Suppurative tenosynovitis of the flexor hallucis longus tendon. Cellulitis, left lower extremity. Rupture of the flexor hallucis longus tendon. Condition on Discharge: Good Activity: Per Instructions section Non-emergency contact: Surgeon Call non-emergency contact if: your pain is not controlled, your temperature is above 101.5, your wound has increased redness and your wound has increased drainage Follow-up/Referrals: Daniel Pitts DO [Surgeon] - (10-14 days) Westley Bardales MD [Primary Care Provider] - (Follow up after [facility]) Diet: Carb Consistent or DM2 Addtl Attending Provider Instructions: You were admitted at [facility] from January 29-2020 due to 1 month of worsening swelling and tenderness of your left lower extremity. Your left lower extremity appeared cellulitic with subsequent imaging confirming a large multiloculated collection in the posterior soft tissues of the calf with peripheral enhancement suggestive of an abscess. Initially treated with intravenous Vancomycin and Zosyn. On review by orthopedics it was recommended this is treated operatively which was performed on 01/30/2021 with left posterior ankle incision and drainage of large abscess, incision and drainage of left plantar medial foot abscess and excision of infected flexor hallucis longus tendon and the posterior ankle. Blood culture subsequently negative. Full surgical cultures and pending at discharge but growing multiple organism none of which appear to be MRSA. On review by infectious disease it was recommended to continue on intravenous Zosyn for the duration of your antibiotic course for a total of 3 weeks post operatively from 01/30/2021. While on Zosyn please monitor BMP once weekly. US guided line was placed that can remain in for the duration of your treatment. Please see additional orthopedic instructions below. With regards to your diabetes. HbA1C 8.0. Will increase your Jardiance on discharge however consider switching to insulin regimen if glucose continues to not be well controlled. Per orthopedic recommendations will use aspirin 81mg BID for VTE prophylaxis while non-weight bearing and then go back to 81mg PO daily. 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 Pitts's office in follow-up. Continue daily dressing changes. Wound care center at [place] facility to change type of dressings as appropriate. Continue IV antibiotics as per medicine service. Follow-up with Dr. Pitts in 10 to 14 days from the day of surgery. Please call for appointment. [phone] Pending Studies at Discharge: Yes Stand-Alone Forms: My [facility] [employer] Digital Keys Skilled Items Patient informed of condition?: Yes DNR: No Discharge Level of Care: Other Communicable Disease: No Discharge Prognosis: Stable Lines: US Guided Peripheral IV Urinary Catheter: No Medications and DC Order Prescriptions: New Zosyn in dextrose (iso-osm) 4.5 gram/100 mL piggyback 4.5 g IV Q8H 18 Days Qty: 6075 RF: 0 multivitamin [Daily-Romain] Tablet 1 tab PO QAM Qty: 30 RF: 0 docusate sodium 100 mg Capsule 100 mg PO BID PRN (Reason: Constipation) Qty: 14 RF: 0 acetaminophen 500 mg Tablet 1,000 mg PO Q8 14 Days Qty: 84 RF: 0 Advanced Probiotic 625 mg (10 billion cell) Capsule 2 cap PO DAILY Qty: 30 RF: 0 Continued multivitamin Tablet 1 tab PO DAILY RF: 0 atorvastatin 40 mg Tablet 20 mg PO DAILY RF: 0 lisinopril 20 mg Tablet 20 mg PO DAILY RF: 0 famotidine [Pepcid] 20 mg Tablet 20 mg PO BID RF: 0 metformin 1,000 mg Tablet 1,000 mg PO BID RF: 0 metoprolol tartrate 50 mg Tablet 50 mg PO BID RF: 0 hydrochlorothiazide 25 mg Tablet 25 mg PO DAILY RF: 0 loratadine 10 mg Tablet 10 mg PO DAILY PRN (Reason: ALLERGIES) RF: 0 alogliptin 25 mg Tablet 25 mg PO DAILY RF: 0 Changed Jardiance 25 mg Tablet 25 mg PO DAILY Qty: 0 RF: 0 aspirin 81 mg Tablet,Delayed Release (Dr/Ec) 81 mg PO BID Qty: 0 RF: 0 Discontinued cephalexin 500 mg capsule 500 mg PO QID RF: 0 Discharge Orders: Discharge Order (Routine); Ordered 02/03/21 Ordered By: Pito Tompkins/Other Patient Handouts: Managing Type 2 Diabetes, A1C Admission Data Admit Date/Time: 01/29/21 20:38 Attending Provider: Pito Hand Admit Provider: Tim Meza Primary Care Provider: Westley Bardales Other Providers: Micah Bishop ; Daniel Pitts ; Dillon Stearns ; Thomas Soares ; Fish Cerna I. ; Boris Velasquez II ; Francheska Mejia ; Leland Mccord ; [facility],Hospital ; [facility],Hospice ; [facility] Healthcare Other Interventions: Discharge Summary Assessment (RN) Last Done: 02/03/21 10:59 Coding Level of Care Code D/C Day Management >30 mins Diagnoses Cellulitis and abscess of left lower extremity L03.116; L02.416 Acute osteomyelitis of left ankle or foot M86.172
[2021-02-04] MEDS ORDERED: ADVANCED PROBIOTIC 1250 MG CAPSULE PO SCH (09:00)
== END 2021-02-03 12:30 | DRG 581 ==
LOC: ED 15:58 → 3W 20:38 → SUATTDRO 20:38 → 3W 22:05